=== PATIENT | male | born 1945 | race Caucasian/White ===

== ENCOUNTER 2019-11-26 10:01 | Outpatient (CLI) | payer MEDICARE, OTHER ==
[2019-11-26 11:08] LABS: Estimated GFR-MDRD - POC Greater than 90
--- NOTE | 2019-11-26 11:31 | CT ---
CT ABDOMEN AND PELVIS HISTORY: Chronic diarrhea. Unintentional weight loss. Periumbilical pain. COMPARISON: None.. Procedure: Multiple contiguous axial images were obtained and a CT of the abdomen and pelvis with IV contrast. C oronal reformats were performed. FINDINGS: Lower Chest: Focal opacities in the left lower lobe may represent scar or atelectasis. Infiltrate can not be entirely excluded. Chronic changes in the right lung bases are suspected. Vessels: Atherosclerosis of a nonaneurysmal aorta. Heart: Normal heart size. There are coronary artery calcifications. Abdomen: Portal vein:Patent Gallbladder: No calcified gallstones. Normal caliber wall. Liver: within normal limits. Pancreas: Pancreatic atrophy. No obvious pancreatic masses. Spleen: within normal limits. Adrenals: within normal limits. Kidneys: Symmetric enhancement. There are multiple exophytic hypodense lesions emanating from the lef t and right kidney, compatible with cysts. There are additional isodense lesions in the upper pole of the right kidney and midpole to lower pole of the right kidney which are incompletely evaluated. R ight upper pole lesion measures 0.8 x 1.1 cm. Right lower pole lesion measures 1.6 x 1.5 cm. Additionally, there appear to be bilateral parapelvic cysts. Bilaterally no obstructive uropathy. Peritoneum: No ascites or free air, no fluid collection. A trace amount of fluid in both paracolic gu tters. Bowel: Gastric mucosa, duodenum and multiple contrast-filled small bowel loops are grossly unremarkab le. Ileocecal junction is unremarkable. Normal caliber appendix. There is scattered fecal material and contrast throughout the colon. Obvious mucosal-based lesion is not appreciated. Occasional divert iculum, without evidence of diverticulitis. Mesentery and Retroperitoneum: No enlarged mesenteric or retroperitoneal lymph nodes. Abdominal Wall: within normal limits. Pelvis: Reproductive Organs: Enlarged prostate gland with some mass effect upon the of floor the urinary blad sumeet. Pelvis: No mass, lymphadenopathy, free air or free fluid. Bladder: There is circumferential bladder wall thickening. There appears to be a soft tissue nodule a long the right aspect of the urinary bladder measuring 0.9 x 1.1 cm. A bladder neoplasm cannot be excluded. Bones: There are no lytic or blastic lesions. Multilevel vacuum disc phenomenon of the lumbar spine a s noted. IMPRESSION: 1. No obvious evidence of bowel obstruction. There is limited evaluation of the right hemicolon. Give n patient's history, colonoscopy is recommended. 2. Possible neoplasm or mass in the right aspect of the urinary bladder. Cystoscopy is recommended. 3. Indeterminate lesions in the right kidney. Dedicated abdomen MRI is recommended to better interrog ate the renal cortical lesions. CODE T Transcribed Date/Time: 11/26/2019 11:38 AM
== END 2019-11-26 10:02 | disposition home or self-care (01) ==
LOC: BICCT 10:01
PROVIDERS: ATTEND Internal Medicine
DX: K52.9 Noninfective gastroenteritis and colitis, unspecified (principal); R63.4 Abnormal weight loss; R10.33 Periumbilical pain; N28.89 Other specified disorders of kidney and ureter
CPT/HCPCS: 74177; 82565

== ENCOUNTER 2020-01-11 10:48 | Outpatient (CLI) | payer OTHER ==
--- NOTE | 2020-01-11 13:02 | CT ---
CT Abdomen Pelvis W WO con: 01/11/2020 12:00 AM CLINICAL HISTORY: Parapelvic renal cyst. Bladder mass.. TECHNIQUE: Multiple contiguous axial images were obtained and a CT of the abdomen and pelvis without and with IV contrast. Postcontrast images were obtained in the nephrographic and excretory phases. Sagittal and coronal reformats were performed. COMPARISON: None. FINDINGS: Kidneys and Urinary Tract: Right kidney and ureter: No calculi. No hydronephrosis or hydroureter. Multiple cysts scattered throu ghout the kidney. Some of the cysts are hyperdense. No suspicious renal masses. No urothelial lesions: no filling defect, dilation, stricture or wall thickening. Left kidney and ureter: No calculi. No hydronephrosis or hydroureter. Multiple cysts scattered throug hout the kidney. Some of the cysts are hyperdense. No suspicious renal masses. No urothelial lesions: no filling defect, dilation, stricture or wall thickening. Urinary bladder: Moderate hypertrophy of the prostate. Normal, no calculi, mass or other lesions. Remainder of Abdomen and Pelvis: Liver: Normal. Gallbladder and biliary system: Normal. No CT evident gallstones. No biliary ductal dilatation. Spleen: Normal. Pancreas: Normal. Adrenal glands: Normal. GI tract: Normal. Abdominal aorta and its major branches: Atherosclerotic calcifications. No aneurysm. Peritoneum/retroperitoneum: Normal. No ascites. No adenopathy. Pelvic structures: Normal. No pelvic lymphadenopathy. Body wall and musculoskeletal: Degenerative changes in the spine. Visualized lower thorax: Normal. No pulmonary parenchymal mass or pleural effusion. IMPRESSION: Bilateral renal cysts
== END 2020-01-11 10:49 | disposition home or self-care (01) ==
LOC: SCSCT 10:48
PROVIDERS: ATTEND Urology
DX: N28.1 Cyst of kidney, acquired (principal); N32.89 Other specified disorders of bladder; N28.89 Other specified disorders of kidney and ureter
CPT/HCPCS: 74178

== ENCOUNTER 2020-01-13 10:59 | Outpatient (CLI) | payer OTHER ==
[2020-01-13 14:01] LABS: Bacteria/HPF None Seen HPF (None Seen); Bilirubin Negative (Negative); Blood, Urine Negative (Negative); Clarity Clear (Clear); Glucose, Urine (Dipstick) Normal (Negative); Leukocyte Negative Leu/uL (Negative); Nitrite Negative (Negative); Protein, Urine (Dipstick) Negative (Neg-Trace); RBC/HPF 0-3 HPF (0-3); Squamous Epithelial None Seen HPF (0-3); Urobilinogen Normal mg/dL (Less than 2); WBC/HPF 0-3 HPF (0-3)
== END 2020-01-13 11:00 | disposition home or self-care (01) ==
LOC: LABBT 10:59
PROVIDERS: ATTEND Urology
DX: Z01.818 Encounter for other preprocedural examination (principal); Z12.5 Encounter for screening for malignant neoplasm of prostate; N32.89 Other specified disorders of bladder; N40.1 Benign prostatic hyperplasia with lower urinary tract symptoms; R39.14 Feeling of incomplete bladder emptying; N28.1 Cyst of kidney, acquired; K52.9 Noninfective gastroenteritis and colitis, unspecified; I50.32 Chronic diastolic (congestive) heart failure; N28.89 Other specified disorders of kidney and ureter; Z72.0 Tobacco use; Z95.0 Presence of cardiac pacemaker
CPT/HCPCS: 81001; 87086; 93005; 93010

== ENCOUNTER 2020-01-17 07:31 | Day surgery (SDC) | payer OTHER ==
[2020-01-13 11:25] VITALS: BMI 24.4
[2020-01-13 13:31] LABS: Hemoglobin 11.3 g/dL (14.0-18.0); Mean Corpuscular HGB CONC 31.9 g/dL (32.0-36.0); Mean Corpuscular Hemoglobin 26.5 pg (27.0-31.0); Mean Platelet Volume 7.9 fL (7.4-10.4); Platelet Count 270 thou/uL (130-400); RBC Distribution Width 18.7 % (11.5-14.5); Red Blood Cell (RBC) Count 4.26 mill/uL (4.70-6.10); White Blood Cell (WBC) Count 6.4 thou/uL (4.8-10.8)
[2020-01-13 13:39] LABS: INR-International Normal Ratio 0.9; Prothrombin Time 12.4 SEC (12.0-14.7)
[2020-01-13 13:40] LABS: PTT 29.7 SEC (22.9-36.1)
[2020-01-13 13:57] LABS: Anion Gap 13 mmol/L (10-20); BUN (Urea Nitrogen) 9 mg/dL (8.4-25.7); Calc. Creatinine Clearance 0 mL/min (70-130); Calcium 9.3 mg/dL (7.8-10.44); Carbon Dioxide 27 mmol/L (23-31); Chloride 105 mmol/L (98-107); Estimated GFR-MDRD Greater than 90; Glucose 111 mg/dL (83-110); Potassium 4.2 mmol/L (3.5-5.1); Sodium 141 mmol/L (136-145)
[2020-01-17] MEDS ORDERED: Levofloxacin 500 mg/D5W 100 ml Premix Bag ONE (07:53)
[2020-01-17] MEDS ORDERED: Lidocaine 1% PF 5 ML VIAL ONE (09:20)
[2020-01-17] MEDS ORDERED: PROPOFOL 200 MG/20 ML VIAL ONE (09:20)
[2020-01-17] MEDS ORDERED: Rocuronium Bromide 10 MG/ML (10ML VIAL) ONE (09:20)
[2020-01-17] MEDS ORDERED: Ondansetron PF 4 MG/2 ML Vial ONE (09:20)
[2020-01-17] MEDS ORDERED: EPHEDRINE 25 MG/5 ML SYRINGE ONE (09:20)
[2020-01-17] MEDS ORDERED: SUGAMMADEX SODIUM 200 MG/2 ML VIAL ONE ×2 (10:10→11:22)
[2020-01-17] MEDS ORDERED: Fentanyl 100 MCG/2 ML VIAL ONE (10:10)
[2020-01-17] MEDS ORDERED: Oxybutynin 5 MG TAB ONE (11:45)
[2020-01-17] MEDS ORDERED: Phenazopyridine HCl 97.5 MG TABLET ONE (11:46)
--- NOTE | 2020-01-17 16:31 | OP ---
DATE OF PROCEDURE: 01/17/2020 GI DOCTOR: Stas Greco MD PREOPERATIVE DIAGNOSES: 1. A 74-year-old male with history of significant tobacco abuse since age 14. 2. Incidental right lateral wall bladder tumor. 3. Severe benign prostatic hypertrophy with incomplete emptying. Post-void residual around 230. POSTOPERATIVE DIAGNOSES: 1. A 74-year-old male with history of significant tobacco abuse since age 14. 2. Incidental right lateral wall bladder tumor. 3. Severe benign prostatic hypertrophy with incomplete emptying. Post-void residual around 230. PROCEDURES PERFORMED: Cystoscopy, transurethral resection of right lateral bladder tumor, fulguration of bladder tumor, a 20-Kittitian 3-way Garcia catheter placement to gravity leg bag. ANESTHESIA: General. COMPLICATIONS: None apparent. DISPOSITION: To recovery room in stable condition. SPECIMEN: TUR of bladder tumor. INDICATIONS FOR PROCEDURE AND HISTORY: Mr. Perez is a 74-year-old male with history of significant tobacco abuse since age 14, who presented for evaluation of incidental bladder tumor seen on a CT scan obtained by GI. The patient had workup for weight loss, over the last few months with decreased appetite and diarrhea. Colonoscopy was grossly unremarkable. CT demonstrated a small right lateral bladder tumor. He has no significant history of gross hematuria. Remote history of UTI, saw urologist in the past, however, this was years ago. Per my review, CT prostate volume is significantly enlarged, and he was advised to continue his BPH medications, Proscar, and increase his Flomax to b.i.d. Local cystoscopy confirmed right lateral bladder tumor about 1 to 1.5 cm with microcalcification appeared sessile, superficial. However, there was adjacent superficial bladder tumor papillary surrounding the lesion with surface area about 2 cm from the pedunculated lesion. There was significant trabeculation consistent with chronic outlet obstruction. He presents today for TURBT. Risks, complications, and indications were reviewed with the patient and in detail including, but not limited to: Bleeding, pain, infection, clot retention, bladder injury, injury to adjacent organs such as ureteral orifices. All questions were answered to his satisfaction, and they desired to proceed. Possible secondary procedure was reviewed if he warrants a staging TUR. DESCRIPTION OF PROCEDURE: After an informed consent was signed, the patient was taken to the operating room and placed in a dorsal lithotomy position with the genital area prepped and draped in the usual surgical sterile fashion. A 21-Kittitian cystoscope was utilized for cystoscopy, which demonstrated normal anterior urethra. Prostatic urethra was staged demonstrating severe bilobar hyperplasia of the prostate with no evidence of intravesical median lobe. Bladder was entered, which demonstrated the UOs about 3 mm proximal to the bladder neck. There was diffuse trabeculation of the bladder consistent with chronic outlet obstruction. Of note, he has significant telangiectasia of the bladder mucosa with significant vascularity surrounding the right lateral bladder tumor consistent with hypervascularity. He also had some hypervascularity of the trigone as well. At this time, we transitioned to a 70-degree lens, which demonstrated no other lesions of concern. A 26-Kittitian continuous resectoscope with a visual obturator was passed to the level of the bladder, and using a Gyrus bipolar, we resected the right lateral bladder tumor. The tumor itself was about 1 to 1.5 cm, pedunculated, and we resected the tumor. On exam under anesthesia with bladder distended, there was surface area surrounding the bladder tumor, 2 to 3 cm circumferential involving papillary changes consistent with TCC. We resected the pedunculated bladder lesion first. He did have an obturator reflex despite the fact that he was under general anesthesia. Of note, there was no evidence of bladder injury; however, the bladder wall appeared thin, moreover, significant trabeculated bladder lining. With the resection of the bladder tumor and flush down, I was able to see the muscular fibers. As he had an obturator reflex, I did not want to aggressively resect this region given the attenuated bladder mucosa on the lateral wall location as he is high risk for bladder perforation. After the pedunculated lesion was removed, we fulgurated the surrounding papillary area that was involving the bladder tumor with Gyrus fulgurating entirety. The entire surface area was about 4 cm. I did take time fulgurating the mucosa hypervascularity surrounding the lesion and the trigone as well. At the end of the procedure, we evacuated all bladder tumor specimen. Good hemostasis was obtained. No active bleeding was appreciated. A 20-Kittitian 3-way Garcia catheter was placed with CBI port plugged. Catheter was attached to leg bag demonstrating clear output. As he has tendency for incomplete emptying, moreover, attenuated bladder mucosa, we will leave the catheter in until next week. He will see me next week for catheter removal, possible voiding trial versus catheter removal. He is discharged with ciprofloxacin for 10 days, Azo p.r.n., Colace p.r.n., tramadol 50 mg. The patient is advised to continue his Flomax b.i.d., and Proscar. At a later date, he will need to be worked up for BPH intervention with a transrectal ultrasound volume study. Job ID: [id number]
== END 2020-01-17 13:30 | disposition home or self-care (01) ==
LOC: SDC 07:31
PROVIDERS: ATTEND Urology
PROC: 0TBB8ZZ Excision of Bladder, Via Natural or Artificial Opening Endoscopic (ICD-10-PCS; principal; 2020-01-17)
DX: D49.4 Neoplasm of unspecified behavior of bladder (principal); N40.1 Benign prostatic hyperplasia with lower urinary tract symptoms; R33.8 Other retention of urine; Z79.52 Long term (current) use of systemic steroids; Z79.899 Other long term (current) drug therapy
CPT/HCPCS: 36415; 80048; 85027; 85610; 85730; 86850; 86900; 86901; 88305; J1956; J2001; J2405; J2704; J3010

== ENCOUNTER 2020-05-15 07:13 | Outpatient (CLI) | payer OTHER ==
[2020-05-15 14:30] LABS: PTT 29.7 sec (22.9-36.1)
[2020-05-15 14:32] LABS: Hemoglobin 9.8 g/dL (14.0-18.0); Mean Corpuscular HGB CONC 30.1 g/dL (32.0-36.0); Mean Corpuscular Volume 72.8 fL (78.0-98.0); Mean Platelet Volume 7.7 fL (7.4-10.4); Platelet Count 329 thou/uL (130-400); RBC Distribution Width 17.1 % (11.5-14.5); Red Blood Cell (RBC) Count 4.48 mill/uL (4.70-6.10); White Blood Cell (WBC) Count 8.6 thou/uL (4.8-10.8)
[2020-05-15 14:35] LABS: INR-International Normal Ratio 0.9; Prothrombin Time 12.6 sec (12.0-14.7)
[2020-05-15 14:41] LABS: Anion Gap 15 mmol/L (10-20); BUN (Urea Nitrogen) 6 mg/dL (8.4-25.7); Calc. Creatinine Clearance 0 mL/min (70-130); Calcium 8.7 mg/dL (7.8-10.44); Carbon Dioxide 23 mmol/L (23-31); Chloride 104 mmol/L (98-107); Estimated GFR-MDRD Greater than 90; Glucose 107 mg/dL (83-110); Potassium 4.5 mmol/L (3.5-5.1); Sodium 137 mmol/L (136-145)
[2020-05-16 13:11] LABS: SARS-CoV-2 MS2 Positive; SARS-CoV-2 N Gene Negative; SARS-CoV-2 S Gene Negative; SARS-CoV-2 orf1ab Negative
== END 2020-05-15 07:14 | disposition home or self-care (01) ==
LOC: LABBT 07:13
PROVIDERS: ATTEND Urology
DX: Z01.812 Encounter for preprocedural laboratory examination (principal); Z11.59 Encounter for screening for other viral diseases; Z12.5 Encounter for screening for malignant neoplasm of prostate; Z51.81 Encounter for therapeutic drug level monitoring; C67.9 Malignant neoplasm of bladder, unspecified; K52.9 Noninfective gastroenteritis and colitis, unspecified; R39.14 Feeling of incomplete bladder emptying; N32.89 Other specified disorders of bladder; N28.1 Cyst of kidney, acquired; N40.1 Benign prostatic hyperplasia with lower urinary tract symptoms; I50.32 Chronic diastolic (congestive) heart failure; M06.9 Rheumatoid arthritis, unspecified; Z95.0 Presence of cardiac pacemaker; Z79.899 Other long term (current) drug therapy; Z72.0 Tobacco use
CPT/HCPCS: 80048; 85027; 85610; 85730; 87635; U0003

== ENCOUNTER 2020-05-17 06:30 | Day surgery (SDC) | payer OTHER ==
[2020-05-12 16:10] VITALS: BMI 23.7
[2020-05-17] MEDS ORDERED: Levofloxacin 500 mg/D5W 100 ml Premix Bag ONE (06:52)
[2020-05-17] MEDS ORDERED: Phenazopyridine HCl 97.5 MG TABLET ONE (09:32)
--- NOTE | 2020-05-17 10:11 | OP ---
DATE OF PROCEDURE: 05/17/2020 PREOPERATIVE DIAGNOSES: 1. A 74-year-old male with history of benign prostatic hypertrophy, incomplete emptying. 2. History of transitional cell carcinoma in remission, status post transurethral resection of bladder tumor. POSTOPERATIVE DIAGNOSES: 1. A 74-year-old male with history of benign prostatic hypertrophy, incomplete emptying. 2. History of transitional cell carcinoma in remission, status post transurethral resection of bladder tumor. PROCEDURES PERFORMED: Cystoscopy, UroLift implant x6. ANESTHESIA: TIVA. COMPLICATIONS: None apparent. DISPOSITION: To recovery room in stable condition. ESTIMATED BLOOD LOSS: Minimal. INDICATIONS FOR PROCEDURE AND HISTORY: Mr. Perez is a 74-year-old male, known to me with history of bladder cancer, which I treated, status post TURBT and currently in remission. He continues to be surveyed every 3 months. The patient also with a history of BPH, incomplete emptying, requiring double void. His IPSS score is 21. He presents today for UroLift. We did discuss options of continued medical therapy, TURP is an alternative option. With all risks and benefits outlined, he desired less invasive approach and presents today for UroLift. Risks and complications of the procedure reviewed with him in detail including, but not limited to, bleeding, pain, infection, injury to adjacent organs, chronic pain, migration of implants resulting in urolithiasis warranting removal, possible secondary procedure was reviewed with him in detail. All questions answered to his satisfaction and desired to proceed. DESCRIPTION OF PROCEDURE: After an informed consent was signed, the patient was taken to the operating room, placed in a dorsal lithotomy position with the genital area prepped and draped in the usual surgical sterile fashion. A 21-[place] cystoscope was utilized for cystoscopy, which demonstrated bilobar hyperplasia with severe obstruction. The bladder was entered, which demonstrated diffuse trabeculation consistent with chronic outlet obstruction. UOs were identified about 2 to 3 mm proximal to the bladder neck. He had a very small right lateral bladder diverticulum as consistent with prior cystoscopy and demonstrated no evidence of bladder tumor recurrence. At this time, we transitioned to the UroLift cystoscope device with use of visual obturator. We implanted the left lateral lobe first, staying 1.5 to 2 cm proximal to the bladder neck. Total of 3 on each side, resulting in 6 implants. At the end of the procedure, he had a good anterior channel. Although, there were apical lobes residual present, these were nonobstructing, anteriorly he has a great open channel. He did require stacking maneuver at the proximal portion, which opened up his bladder neck widely. The UroLift urethral tab were not seen at the level of bladder neck. He had a good open channel with minimal bleeding. He tolerated the procedure well and transported to the recovery room in stable condition, will undergo voiding trial. We will return to clinic tomorrow for peak flow PVR checked. The patient discharged with ciprofloxacin for 5 days, Niru p.r.n. Job ID: [id number] [facility]
[2020-05-17] MEDS ORDERED: PROPOFOL 200 MG/20 ML VIAL ONE (11:25)
== END 2020-05-17 10:37 | disposition home or self-care (01) ==
LOC: SDC 06:30
PROVIDERS: ATTEND Urology
PROC: 0T7D8DZ Dilation of Urethra with Intraluminal Device, Via Natural or Artificial Opening Endoscopic (ICD-10-PCS; principal; 2020-05-17)
DX: N40.1 Benign prostatic hyperplasia with lower urinary tract symptoms (principal); R39.14 Feeling of incomplete bladder emptying; I10 Essential (primary) hypertension; I25.10 Atherosclerotic heart disease of native coronary artery without angina pectoris; F17.210 Nicotine dependence, cigarettes, uncomplicated; M06.9 Rheumatoid arthritis, unspecified; Z79.899 Other long term (current) drug therapy
CPT/HCPCS: C1889; J1956; J2704

== ENCOUNTER 2020-12-26 09:24 | Outpatient (CLI) | payer OTHER ==
[2020-12-26 09:59] LABS: Estimated GFR-MDRD - POC Greater than 90
[2020-12-26] MEDS ORDERED: Iopamidol-370 76% 500 ML 1 ML ONE (10:09)
--- NOTE | 2020-12-26 12:04 | CT ---
CT ABDOMEN AND PELVIS PERFORMED WITH AND WITHOUT CONTRAST ENHANCEMENT: HISTORY: Bladder cancer. History of tumor being removed. This is followup. COMPARISON: A 01/11/2020 exam. FINDINGS: The lung bases show chronic-appearing change. More prominent interstitial change in the left base wh ich is stable. The liver, spleen, and pancreas regions appear unremarkable. gallbladder is also unremarkable. Right and left adrenal glands are normal. Right and left kidneys are normal in size. There are hypo densities involving both kidneys that are compatible with cysts. There are also a hyperdense lesions which are seen involving both kidneys, one in the posterior cortex of the right kidney and two invol ving the left kidney. These are stable in appearance and most compatible with some hemorrhagic cysts . There is what appears to be a tiny punctate calcification seen in the lower pole of the left kidne y axial image 41. There is no significant periaortic or mesenteric adenopathy. CT OF PELVIS PERFORMED WITH AND WITHOUT CONTRAST ENHANCEMENT: I do not appreciate any significant pelvic lymphadenopathy. On the previous examination, there is a small eccentric right lateral wall bladder lesion which I no longer seen on today's study. There is some minimal bladder wall thickening considering the degree of distention. The prostate is prominent . Prostate seeds are noted. Review of osseous structures shows arthritic changes of the spine. IMPRESSION: 1. Multiple renal cysts, some of which are hyperdense cysts. These are all stable. 2. Some mild bladder wall thickening is present. The small eccentric lesion along the right side o f the bladder wall noted on the previous exam is no longer present. 3. Tiny punctate nonobstructing lower pole left renal calculus. 4. Chronic lung change. POS: [facility]
== END 2020-12-26 09:25 | disposition home or self-care (01) ==
LOC: BICCT 09:24
PROVIDERS: ATTEND Urology
DX: C67.9 Malignant neoplasm of bladder, unspecified (principal); N28.1 Cyst of kidney, acquired; R89.6 Abnormal cytological findings in specimens from other organs, systems and tissues; N20.0 Calculus of kidney; N32.89 Other specified disorders of bladder; J98.4 Other disorders of lung
CPT/HCPCS: 74178; 82565; Q9967

== ENCOUNTER 2023-08-06 13:12 | Outpatient (CLI) | payer OTHER | END 2023-08-06 13:13 | disposition home or self-care (01) | LOC: ULT 13:12 | PROVIDERS: ATTEND Urology | DX: N28.1 Cyst of kidney, acquired (principal); N20.0 Calculus of kidney; N40.0 Benign prostatic hyperplasia without lower urinary tract symptoms | CPT/HCPCS: 76770 ==

== ENCOUNTER 2023-10-28 10:21 | Outpatient (CLI) | payer OTHER ==
[2023-10-28 12:02] LABS: Hematocrit 42.6 % (38.8-50.0); Mean Corpuscular HGB CONC 32.9 g/dL (32.0-36.0); Mean Corpuscular Hemoglobin 29.7 pg (27.0-33.0); Mean Corpuscular Volume 90.4 fl (81.2-95.1); Platelet Count 292 10x3/uL (150-450); RBC Distribution Width 13.6 % (11.5-14.5); Red Blood Cell (RBC) Count 4.71 10x6/uL (4.32-5.72); White Blood Cell (WBC) Count 7.9 10x3/uL (3.5-10.5)
[2023-10-28 12:06] LABS: Bilirubin Neg (Negative); Blood, Urine Negative (Negative); Glucose, Urine (Dipstick) Normal (Negative); Ketone, Urine Negative (Negative); Leukocyte Negative (Negative); Nitrite Negative (Negative); Protein, Urine (Dipstick) 15 mg/dl (Neg-Trace); Specific Gravity, Urine 1.005 (1.005-1.030); Urobilinogen Normal mg/dL (Less than 2); pH, Urine 6.5 (5.0-9.0)
[2023-10-28 12:07] LABS: Clarity Clear (Clear)
[2023-10-28 12:09] LABS: Anion Gap 14 mmol/L (10-20); BUN (Urea Nitrogen) 14 mg/dL (8.4-25.7); Calc. Creatinine Clearance 0 mL/min (70-130); Carbon Dioxide 25 mmol/L (23-31); Chloride 99 mmol/L (98-107); Estimated GFR 88; Glucose 93 mg/dL (83-110); Potassium 4.4 mmol/L (3.5-5.1); Sodium 134 mmol/L (136-145)
[2023-10-28 12:15] LABS: Bacteria/HPF None Seen HPF (None Seen); RBC/HPF None Seen HPF (0-3); Squamous Epithelial None Seen HPF (0-3); WBC/HPF None Seen HPF (0-3)
[2023-10-28 12:17] LABS: PTT 33.5 sec (22.0-33.0); Prothrombin Time 11.1 sec (9.5-12.1)
== END 2023-10-28 10:22 | disposition home or self-care (01) ==
LOC: LABBT 10:21
PROVIDERS: ATTEND Urology
DX: Z01.818 Encounter for other preprocedural examination (principal); Z12.5 Encounter for screening for malignant neoplasm of prostate; C67.9 Malignant neoplasm of bladder, unspecified; N28.1 Cyst of kidney, acquired; N40.1 Benign prostatic hyperplasia with lower urinary tract symptoms; R39.14 Feeling of incomplete bladder emptying; I50.32 Chronic diastolic (congestive) heart failure; M06.9 Rheumatoid arthritis, unspecified; N52.9 Male erectile dysfunction, unspecified; N20.0 Calculus of kidney; K52.9 Noninfective gastroenteritis and colitis, unspecified; R89.6 Abnormal cytological findings in specimens from other organs, systems and tissues; R82.71 Bacteriuria; Z95.0 Presence of cardiac pacemaker; Z72.0 Tobacco use
CPT/HCPCS: 80048; 81001; 85027; 85610; 85730; 87086; 93005; 93010

== ENCOUNTER 2023-11-08 11:41 | Inpatient (IN) | payer OTHER ==
[2023-11-08 12:00] LABS: #Monocytes 0.8 thou/uL (0.11-0.59); #Neutrophils 8.9 thou/uL (1.40-6.50); %Basophils 0.2 % (0.0-1.0); %Eosinophils 0.1 % (0.0-10.0); %Lymphocytes 15.4 % (21.0-51.0); %Monocytes 6.9 % (0.0-10.0); %Neutrophils 76.8 % (42.0-75.0); Hematocrit 47.6 % (42.0-52.0); Hemoglobin 15.5 g/dL (14.0-18.0); Mean Corpuscular HGB CONC 32.6 g/dL (32.0-36.0); Mean Corpuscular Hemoglobin 29.5 pg (27.0-31.0); Mean Corpuscular Volume 90.7 fl (78.0-98.0); Mean Platelet Volume 8.6 fL (7.4-10.4); Platelet Count 374 10x3/uL (130-400); RBC Distribution Width 13.2 % (11.5-14.5); Red Blood Cell (RBC) Count 5.25 mill/uL (4.70-6.10); White Blood Cell (WBC) Count 11.6 10x3/uL (4.8-10.8)
[2023-11-08 12:19] LABS: ALT (SGPT) 25 U/L (8-55); AST (SGOT) 49 U/L (5-34); Albumin 3.1 g/dL (3.4-4.8); Alkaline Phosphatase 143 U/L (40-110); Anion Gap 25 mmol/L (10-20); BUN (Urea Nitrogen) 17 mg/dL (8.4-25.7); Bilirubin, Total 1.2 mg/dL (0.2-1.2); CK (CPK) 192 U/L (30-200); Calc. Creatinine Clearance 0 mL/min (70-130); Calcium 9.1 mg/dL (7.8-10.44); Carbon Dioxide 12 mmol/L (23-31); Chloride 100 mmol/L (98-107); Estimated GFR 57; Globulin 3.6 g/dL (2.4-3.5); Glucose 187 mg/dL (83-110); Potassium 3.9 mmol/L (3.5-5.1); Protein, Total 6.7 g/dL (5.8-8.1); Sodium 133 mmol/L (136-145)
[2023-11-08 12:21] LABS: Troponin I 0.059 ng/mL (< 0.028)
[2023-11-08] MEDS ORDERED: NOREPINEPHRINE 8 MG/250 ML-D5W 250 ML ONE (12:21)
[2023-11-08] MEDS ORDERED: Digoxin 0.5 MG/2 ML AMP ONE (12:37)
[2023-11-08 12:46] LABS: Prothrombin Time 18.4 sec (12.0-14.7)
[2023-11-08 12:47] LABS: PTT 38.7 sec (22.9-36.1)
[2023-11-08 12:48] LABS: INR-International Normal Ratio 1.5
[2023-11-08] MEDS ORDERED: Cefepime 2 GM VIAL ONE (13:18)
[2023-11-08] MEDS ORDERED: Sodium Chloride 0.9% 100 ML ONE (13:19)
[2023-11-08] MEDS ORDERED: Vancomycin (BATCH) 1.25 GM in Premix 1 BAG IVPB SCH (13:45)
[2023-11-08] MEDS ORDERED: Ondansetron PF 4 MG/2 ML Vial ONE (13:57)
[2023-11-08] MEDS ORDERED: Iopamidol-370 76% 500 ML MDV (1 ML CHARGE) ONE (14:29)
[2023-11-08 14:33] LABS: Bacteria/HPF None Seen HPF (None Seen); Bilirubin Negative (Negative); Blood, Urine Negative (Negative); CAUTI Indications for Culture Dysuria,urgency,freq; Clarity Clear (Clear); Glucose, Urine (Dipstick) Normal (Negative); Ketone, Urine Negative (Negative); Leukocyte Negative Leu/uL (Negative); Nitrite Negative (Negative); Protein, Urine (Dipstick) 10 mg/dL (Neg-Trace); RBC/HPF 0-3 HPF (0-3); Specific Gravity, Urine 1.014 (1.002-1.036); Squamous Epithelial 0-3 HPF (0-3); Urobilinogen Normal mg/dL (Less than 2); WBC/HPF 0-3 HPF (0-3); pH, Urine 5.5 (5.0-9.0)
[2023-11-08 14:35] LABS: Urine Culture Reflex No No
[2023-11-08 16:54] LABS: Troponin I 0.288 ng/mL (< 0.028)
[2023-11-08] MEDS ORDERED: Sodium Bicarbonate 75 MEQ in Dextrose 5% in Water 500 ML IV SCH (17:00)
[2023-11-08] MEDS: Ondansetron PF 4 MG/2 ML Vial IVP PRN (17:26)
[2023-11-08] MEDS: Sodium Bicarbonate 150 MEQ in Dextrose 5% in Water 1,000 ML IV SCH (18:27)
[2023-11-08 19:32] LABS: Lactic Acid 3.1 mmol/L (0.5-2.2)
[2023-11-08 19:36] LABS: Troponin I 0.479 ng/mL (< 0.028)
[2023-11-08] MEDS ORDERED: Labetalol HCl 100 MG/20 ML VIAL SLOW IVP PRN (20:38)
[2023-11-08] MEDS ORDERED: hydrALAZINE 20 MG/ML VIAL SLOW IVP PRN (20:38)
[2023-11-08] MEDS ORDERED: Pantoprazole 40 MG VIAL IVP SCH (20:45)
[2023-11-08] MEDS ORDERED: Dextrose 5% in Water 1,000 ML IV PRN (20:45)
[2023-11-08] MEDS ORDERED: Glucagon 1 MG/ML KIT IM PRN (20:45)
[2023-11-08] MEDS ORDERED: Electrolyte Replacement Protocol 1 EACH FS SCH (20:45)
[2023-11-08] MEDS ORDERED: Digoxin 0.5 MG/2 ML AMP SLOW IVP SCH (20:45)
[2023-11-08] MEDS ORDERED: Dextrose 50% Abboject 50 ML SYRINGE SLOW IVP PRN (20:45)
[2023-11-08] MEDS ORDERED: methylPREDNISolone Sod Succ 40 MG VIAL IVP SCH (21:00)
[2023-11-08] MEDS ORDERED: Atorvastatin Calcium 20 MG TAB PO SCH (21:00)
[2023-11-08] MEDS ORDERED: Promethazine HCl 12.5 MG in Sodium Chloride 0.9% 50 ML IVPB SCH (21:15)
[2023-11-08] MEDS ORDERED: diphenhydrAMINE 50 MG/ML VIAL IVP SCH (21:15)
[2023-11-08 21:40] LABS: Lactic Acid 3.6 mmol/L (0.5-2.2)
[2023-11-08] MEDS: Artificial Tear Sol 15 ML BOT EA EYE SCH (21:42)
[2023-11-08] MEDS: Ferrous Sulfate 325 MG TAB PO SCH (21:42)
[2023-11-08] MEDS: Apixaban 5 MG TAB PO SCH (21:43)
[2023-11-08 21:48] LABS: SARS-CoV-2 NAA Rapid Test Not Detected (NotDetected)
[2023-11-08 21:50] LABS: Anion Gap 18 mmol/L (10-20); BUN (Urea Nitrogen) 28 mg/dL (8.4-25.7); Calc. Creatinine Clearance 35 mL/min (70-130); Calcium 7.6 mg/dL (7.8-10.44); Carbon Dioxide 17 mmol/L (23-31); Chloride 100 mmol/L (98-107); Estimated GFR 38; Glucose 282 mg/dL (83-110); Potassium 4.3 mmol/L (3.5-5.1); Sodium 131 mmol/L (136-145)
[2023-11-08] MEDS: Atorvastatin Calcium 40 MG TAB PO SCH (21:50)
[2023-11-08 22:05] LABS: Phosphorus 4.6 mg/dL (2.3-4.7)
[2023-11-08] MEDS ORDERED: metroNIDAZOLE 500 MG in Premix 1 BAG IVPB SCH (23:00)
[2023-11-08 23:24] LABS: Critical Call Chem Troponin I RESULT DECREASING; Troponin I 0.341 ng/mL (< 0.028)
[2023-11-08] MEDS: Amiodarone 450 MG in Dextrose 5% in Water 250 ML IVPB SCH (23:31)
[2023-11-08] MEDS: Acetaminophen 325 MG TAB PO PRN (23:38)
[2023-11-09] MEDS ORDERED: fentaNYL 50 mcg/mL 1 mL Vial SLOW IVP SCH (00:15)
[2023-11-09] MEDS ORDERED: Magnesium 2 GM/50 ML(in water) 2 GM in Premix 1 BAG IVPB SCH (02:15)
[2023-11-09] MEDS: Cefepime 1 GM in Sodium Chloride 0.9% 100 ML IVPB SCH ×2 (03:05→14:32)
[2023-11-09] MEDS: Vancomycin HCl 750 MG in Sodium Chloride 0.9% 250 ML 250 ML IVPB SCH ×2 (03:05→15:57)
[2023-11-09] MEDS: Sodium Bicarbonate 150 MEQ in Dextrose 5% in Water 1,000 ML IV SCH (03:16)
[2023-11-09 03:32] LABS: #Eosinphils 0.2 thou/uL (0.0-0.7); #Neutrophils 10.1 thou/uL (1.40-6.50); %Basophils 0.3 % (0.0-1.0); %Eosinophils 1.4 % (0.0-10.0); %Lymphocytes 5.2 % (21.0-51.0); %Monocytes 8.4 % (0.0-10.0); %Neutrophils 84.4 % (42.0-75.0); Hematocrit 43.3 % (42.0-52.0); Hemoglobin 14.5 g/dL (14.0-18.0); Mean Corpuscular HGB CONC 33.5 g/dL (32.0-36.0); Mean Corpuscular Hemoglobin 29.3 pg (27.0-31.0); Mean Platelet Volume 9.2 fL (7.4-10.4); Platelet Count 279 10x3/uL (130-400); RBC Distribution Width 13.4 % (11.5-14.5); Red Blood Cell (RBC) Count 4.95 mill/uL (4.70-6.10)
[2023-11-09 03:35] LABS: Mean Corpuscular Volume 87.5 fl (78.0-98.0)
[2023-11-09 03:59] LABS: Anion Gap 16 mmol/L (10-20); BUN (Urea Nitrogen) 29 mg/dL (8.4-25.7); Calc. Creatinine Clearance 41 mL/min (70-130); Calcium 7.4 mg/dL (7.8-10.44); Carbon Dioxide 20 mmol/L (23-31); Cardiac Risk 2.3 (Less than 4.5); Chloride 98 mmol/L (98-107); Cholesterol 77 mg/dl (< 200 Desired); Estimated GFR 46; Glucose 207 mg/dL (83-110); HDL Cholesterol 34 mg/dL (>60 Neg Risk); LDL Cholesterol, Calculated 34 mg/dL; Lactic Acid 2.8 mmol/L (0.5-2.2); Potassium 3.7 mmol/L (3.5-5.1); Sodium 130 mmol/L (136-145); Triglycerides 46 mg/dL (Less than 150)
[2023-11-09] MEDS: metroNIDAZOLE 500 MG in Premix 1 BAG IVPB SCH ×3 (06:22→21:00)
[2023-11-09] MEDS: methylPREDNISolone Sod Succ 40 MG VIAL IVP SCH (08:26)
[2023-11-09] MEDS: Cholecalciferol 1,000 UNITS (25 MCG) TAB PO SCH (08:26)
[2023-11-09] MEDS: Apixaban 5 MG TAB PO SCH ×2 (08:26→20:45)
[2023-11-09] MEDS: Tamsulosin HCl 0.4 MG CAP PO SCH (08:26)
[2023-11-09] MEDS: Finasteride 5 MG TAB PO SCH (08:26)
[2023-11-09] MEDS: Ferrous Sulfate 325 MG TAB PO SCH ×2 (08:26→20:46)
[2023-11-09] MEDS: Aspirin 81 mg Enteric Coated Tablet PO SCH (08:26)
[2023-11-09] MEDS: Folic Acid 1 MG TAB PO SCH (08:26)
[2023-11-09] MEDS: Pantoprazole 40 MG VIAL IVP SCH (08:26)
[2023-11-09] MEDS: Artificial Tear Sol 15 ML BOT EA EYE SCH ×4 (08:32→20:45)
[2023-11-09] MEDS: Ondansetron PF 4 MG/2 ML Vial IVP PRN ×2 (09:15→16:57)
[2023-11-09] MEDS ORDERED: Metoprolol Tartrate 5 MG/5 ML VIAL IVP SCH (09:45)
[2023-11-09 13:34] LABS: Bacteria/HPF None Seen HPF (None Seen); Squamous Epithelial 0-3 HPF (0-3)
[2023-11-09] MEDS: Sucralfate 1 GM TAB PO SCH ×2 (15:57→20:45)
[2023-11-09] MEDS: Amiodarone 450 MG in Dextrose 5% in Water 250 ML IVPB SCH (17:13)
[2023-11-09] MEDS: Gabapentin 300 MG CAP PO SCH (20:45)
[2023-11-09] MEDS: Atorvastatin Calcium 40 MG TAB PO SCH (20:46)
[2023-11-09] MEDS: Acetaminophen 325 MG TAB PO PRN (20:52)
[2023-11-09] MEDS ORDERED: sulfaSALAzine 500 MG TAB PO SCH (21:00)
[2023-11-09] MEDS ORDERED: Hydroxychloroquine Sulfate 200 MG TAB PO SCH (21:00)
[2023-11-09 23:57] LABS: Campy jejuni + coli by PCR Negative (Negative); STEC Shiga Toxin 1+2 Negative (Negative); Salmonella spp. by PCR Negative (Negative); Shigella spp + EIEC by PCR Negative (Negative)
[2023-11-10] MEDS ORDERED: Lactated Ringer's 500 ML IV SCH (01:15)
[2023-11-10] MEDS: Ondansetron PF 4 MG/2 ML Vial IVP PRN (01:41)
[2023-11-10] MEDS: Cefepime 1 GM in Sodium Chloride 0.9% 100 ML IVPB SCH (02:04)
[2023-11-10] MEDS ORDERED: NOREPINEPHRINE 8 MG/250 ML-D5W 250 ML ONE (03:07)
[2023-11-10] MEDS ORDERED: EPINEPHrine 1 MG/10 ML Abboject SYRINGE ONE (03:15)
[2023-11-10] MEDS ORDERED: Sodium Bicarb 50 MEQ/50 ML Abboject 8.4% SYRINGE ONE (03:15)
[2023-11-10] MEDS ORDERED: Rocuronium Bromide 10 MG/ML (10ML VIAL) ONE ×3 (03:15→08:59)
[2023-11-10] MEDS ORDERED: Sodium Bicarb 50 MEQ/50 ML VIAL IVP SCH ×2 (03:45→04:45)
[2023-11-10 03:47] LABS: Hematocrit 35.3 % (42.0-52.0); Hemoglobin 11.6 g/dL (14.0-18.0); Manual Diff?? YES; Mean Corpuscular HGB CONC 32.9 g/dL (32.0-36.0); Mean Corpuscular Hemoglobin 29.4 pg (27.0-31.0); Mean Corpuscular Volume 89.4 fl (78.0-98.0); Mean Platelet Volume 9.6 fL (7.4-10.4); Platelet Count 296 10x3/uL (130-400); RBC Distribution Width 13.4 % (11.5-14.5); Red Blood Cell (RBC) Count 3.95 mill/uL (4.70-6.10); White Blood Cell (WBC) Count 12.1 10x3/uL (4.8-10.8)
[2023-11-10 03:48] LABS: Delete Auto Diff?? YES
[2023-11-10 03:49] LABS: Actual Bicarbonate (HCO3a) 18.9 mEq/L (22-28); Base Excess (BEa) -7.1 mEq/L (-2.0 to +3.0); CO2 Tension 39.6 mmHg (35.0-45.0); Calcium, Ionized (arterial) 0.94 mmol/L (1.12-1.30); Hematocrit-ABG 34 % (42.0-52.0); Hemoglobin (Hb) 11.6 g/dL (14.0-18.0); Potassium - ABG Lab 4.16 mmol/L (3.70-5.30); pH, Arterial 7.296 (7.35-7.45)
[2023-11-10 03:53] LABS: Puncture Site RFA
[2023-11-10 04:09] LABS: Digoxin 1.56 ng/mL (0.8-2.0)
[2023-11-10 04:14] LABS: Vancomycin, Trough 17.5 ug/mL
[2023-11-10 04:25] LABS: Troponin I 0.362 ng/mL (< 0.028)
[2023-11-10 04:26] LABS: ALT (SGPT) 26 U/L (8-55); AST (SGOT) 56 U/L (5-34); Albumin 2.1 g/dL (3.4-4.8); Alkaline Phosphatase 80 U/L (40-110); Anion Gap 23 mmol/L (10-20); BUN (Urea Nitrogen) 48 mg/dL (8.4-25.7); Calc. Creatinine Clearance 23 mL/min (70-130); Calcium 6.6 mg/dL (7.8-10.44); Carbon Dioxide 14 mmol/L (23-31); Chloride 97 mmol/L (98-107); Estimated GFR 23; Globulin 2.3 g/dL (2.4-3.5); Glucose 63 mg/dL (83-110); Protein, Total 4.4 g/dL (5.8-8.1); Sodium 129 mmol/L (136-145)
[2023-11-10] MEDS ORDERED: Dextrose 50% Abboject 50 ML SYRINGE SLOW IVP PRN (04:30)
[2023-11-10] MEDS ORDERED: NOREPINEPHRINE 8 MG/250 ML-D5W 250 ML IVPB SCH (04:30)
[2023-11-10] MEDS ORDERED: CALCIUM GLUC 1 GM/NS 50 ML 1 GM in Premix 1 BAG IVPB SCH (04:30)
[2023-11-10] MEDS ORDERED: Sodium Bicarbonate 150 MEQ in Dextrose 5% in Water 1,000 ML IV SCH (04:45)
[2023-11-10 05:15] LABS: Band 44 % (5-11); Burr Cells MODERATE= 6-15 cells HPF (0-1); CellaVision Operator ID lab.sh2; Lymphocytes 4 % (21-51); Monocytes 11 % (0-10); Neutrophil 41 % (42-75); Nucleated RBC (Manual Ct) 1 % (0); Platelet Adequacy Comment Platelets Normal; Poikilocytosis SLIGHT = 6-15 cells HPF (0-5); Polychromasia SLIGHT = 2-3 cells HPF (0-2); Smudge Cells 10.5 %; Total Cell Count 105; Vacuoles SLIGHT
[2023-11-10] MEDS: Albumin 25% 25 GM/100 ML BOT IVPB SCH ×3 (05:29→17:37)
[2023-11-10] MEDS ORDERED: Lactated Ringer's 1,000 ML IV SCH (05:30)
[2023-11-10] MEDS: Vasopressin 20 UNITS in Sodium Chloride 0.9% 50 ML IV SCH ×2 (05:32→11:43)
[2023-11-10] MEDS: Vancomycin HCl 750 MG in Sodium Chloride 0.9% 250 ML 250 ML IVPB SCH (06:18)
[2023-11-10] MEDS: metroNIDAZOLE 500 MG in Premix 1 BAG IVPB SCH ×3 (06:18→22:20)
[2023-11-10] MEDS: Sodium Bicarbonate 150 MEQ in Dextrose 5% in Water 1,000 ML IV SCH ×3 (06:19→22:20)
[2023-11-10] MEDS ORDERED: Vancomycin Dose by Levels Sliding Scale (Wt 71-99) FS SCH (06:45)
[2023-11-10 07:03] LABS: Base Excess -9.4 mEq/L (-2.0 to +3.0); Calcium, Ionized (venous) 0.95 mmol/L (1.16-1.32); Chloride (VBG) 92 mmol/L (98-106); Hematocrit-VBG 34 % (42.0-52.0); Hemoglobin (Hb) 11.4 g/dL (12.6-17.4); Potassium (VBG) 3.68 mmol/L (3.70-5.30); Sodium 127 mmol/L (133-146); pH (venous) 7.348 (7.32-7.43)
[2023-11-10 07:04] LABS: Actual Bicarbonate (HCO3v) 14.8 mEq/L (22-28)
[2023-11-10] MEDS: Ipratropium Bromide 2.5 ml Neb NEB SCH ×3 (07:27→18:18)
[2023-11-10 07:41] LABS: ALT (SGPT) 22 U/L (8-55); AST (SGOT) 53 U/L (5-34); Albumin 2.4 g/dL (3.4-4.8); Alkaline Phosphatase 66 U/L (40-110); Anion Gap 24 mmol/L (10-20); BUN (Urea Nitrogen) 47 mg/dL (8.4-25.7); Bilirubin, Total 1.1 mg/dL (0.2-1.2); Calc. Creatinine Clearance 27 mL/min (70-130); Calcium 7.2 mg/dL (7.8-10.44); Carbon Dioxide 18 mmol/L (23-31); Chloride 93 mmol/L (98-107); Estimated GFR 26; Globulin 2.4 g/dL (2.4-3.5); Glucose 140 mg/dL (83-110); Potassium 3.7 mmol/L (3.5-5.1); Protein, Total 4.8 g/dL (5.8-8.1); Sodium 131 mmol/L (136-145)
[2023-11-10] MEDS ORDERED: Midazolam HCl 2 mg/2 ml Vial ONE (07:50)
[2023-11-10] MEDS ORDERED: Norepinephrine 4 MG/4 ML VIAL ONE (07:50)
[2023-11-10] MEDS ORDERED: Vasopressin 20 UNITS/ML VIAL ONE (07:50)
[2023-11-10] MEDS ORDERED: Albumin 25% 100 ML ONE (07:51)
[2023-11-10] MEDS ORDERED: Rocuronium Bromide 50 MG/5 ML VIAL ONE (07:51)
[2023-11-10] MEDS ORDERED: PHENYLEPHRINE-NS 100 MCG/ML 10 ML SYRINGE ONE ×2 (07:53→08:25)
[2023-11-10 08:22] LABS: INR-International Normal Ratio 3.5; Prothrombin Time 36.6 sec (12.0-14.7)
[2023-11-10 08:23] LABS: PTT 51.6 sec (22.9-36.1)
[2023-11-10] MEDS ORDERED: Calcium Chloride 1 GM/10 ML Abboject SYRINGE ONE ×2 (08:25→08:55)
[2023-11-10] MEDS ORDERED: fentaNYL 50 mcg/mL 1 mL Vial ONE (09:19)
[2023-11-10] MEDS ORDERED: Thrombin 5000 UNITS/5 ML VIAL ONE (09:34)
[2023-11-10] MEDS: Artificial Tear Sol 15 ML BOT EA EYE SCH ×4 (12:12→22:23)
[2023-11-10] MEDS: Finasteride 5 MG TAB PO SCH (12:13)
[2023-11-10] MEDS: Aspirin 81 mg Enteric Coated Tablet PO SCH (12:13)
[2023-11-10] MEDS: Gabapentin 300 MG CAP PO SCH (12:13)
[2023-11-10] MEDS: Tamsulosin HCl 0.4 MG CAP PO SCH (12:13)
[2023-11-10] MEDS: Folic Acid 1 MG TAB PO SCH (12:13)
[2023-11-10] MEDS: Ferrous Sulfate 325 MG TAB PO SCH ×2 (12:13→22:20)
[2023-11-10] MEDS: Cyanocobalamin (Vitamin B-12) 1,000 MCG TAB PO SCH (12:13)
[2023-11-10] MEDS: Cholecalciferol 1,000 UNITS (25 MCG) TAB PO SCH (12:13)
[2023-11-10] MEDS: methylPREDNISolone Sod Succ 40 MG VIAL IVP SCH (12:16)
[2023-11-10] MEDS: Pantoprazole 40 MG VIAL IVP SCH (12:16)
[2023-11-10 18:25] LABS: Hematocrit 29.3 % (42.0-52.0); Hemoglobin 9.9 g/dL (14.0-18.0); Manual Diff?? YES; Mean Corpuscular HGB CONC 33.8 g/dL (32.0-36.0); Mean Corpuscular Hemoglobin 29.5 pg (27.0-31.0); Mean Corpuscular Volume 87.2 fl (78.0-98.0); Mean Platelet Volume 9.7 fL (7.4-10.4); Platelet Count 198 10x3/uL (130-400); RBC Distribution Width 13.2 % (11.5-14.5); Red Blood Cell (RBC) Count 3.36 mill/uL (4.70-6.10); White Blood Cell (WBC) Count 7.6 10x3/uL (4.8-10.8)
[2023-11-10 18:27] LABS: Delete Auto Diff?? YES
[2023-11-10 18:51] LABS: Anion Gap 20 mmol/L (10-20); BUN (Urea Nitrogen) 52 mg/dL (8.4-25.7); Calc. Creatinine Clearance 30 mL/min (70-130); Calcium 7.1 mg/dL (7.8-10.44); Carbon Dioxide 22 mmol/L (23-31); Chloride 91 mmol/L (98-107); Estimated GFR 29; Glucose 189 mg/dL (83-110); Sodium 129 mmol/L (136-145)
[2023-11-10 19:05] LABS: Band 46 % (5-11); Burr Cells SLIGHT = 2-5 cells HPF (0-1); CellaVision Operator ID LAB.MJL; Dohle Bodies SLIGHT; Hypochromia SLIGHT = 6-15 cells HPF (0-5); Large Platelets 2.6 % (0-5); Lymphocytes 4 % (21-51); Metamyelocyte 8 % (0-0); Monocytes 8 % (0-10); Myelocyte 1 % (0-0); Neutrophil 33 % (42-75); Platelet Adequacy Comment Platelets Normal; Polychromasia SLIGHT = 2-3 cells HPF (0-2); Reactive Lymphocytes 1 % (0-10); Reflex for Review?? YES; Total Cell Count 114; Toxic Granulation SLIGHT
[2023-11-10] MEDS: Amiodarone 450 MG in Dextrose 5% in Water 250 ML IVPB SCH (22:20)
[2023-11-10] MEDS: Atorvastatin Calcium 40 MG TAB PO SCH (22:21)
[2023-11-11] MEDS: Albumin 25% 25 GM/100 ML BOT IVPB SCH (00:01)
[2023-11-11] MEDS: Ipratropium Bromide 2.5 ml Neb NEB SCH ×5 (00:10→23:54)
[2023-11-11] MEDS ORDERED: Morphine 2 MG/ML VIAL SLOW IVP PRN (00:30)
[2023-11-11] MEDS ORDERED: Lorazepam 2 MG/ML VIAL SLOW IVP PRN (00:30)
[2023-11-11] MEDS ORDERED: DISCONTINUE PREVIOUS NARCOTIC PAIN MEDICATIONS AND BENZODIAZEPINES FS SCH (00:30)
[2023-11-11] MEDS ORDERED: Fentanyl CADD 100 ML IV SCH (00:30)
[2023-11-11] MEDS ORDERED: Ventilator Sedation Protocol FS SCH (00:30)
[2023-11-11] MEDS ORDERED: Propofol 1,000 MG/100 ML VIAL IV PRN (00:30)
[2023-11-11] MEDS ORDERED: Fentanyl BOLUS 250 ML IVPB PRN (00:30)
[2023-11-11] MEDS ORDERED: Propofol BOLUS 1,000 MG/100 ML VIAL IV PRN (00:30)
[2023-11-11] MEDS: Cefepime 1 GM in Sodium Chloride 0.9% 100 ML IVPB SCH (04:47)
[2023-11-11 05:20] LABS: Hematocrit 25.1 % (42.0-52.0); Hemoglobin 8.9 g/dL (14.0-18.0); Manual Diff?? YES; Mean Corpuscular HGB CONC 35.5 g/dL (32.0-36.0); Mean Corpuscular Hemoglobin 30.2 pg (27.0-31.0); Mean Corpuscular Volume 85.1 fl (78.0-98.0); Mean Platelet Volume 9.9 fL (7.4-10.4); Platelet Count 198 10x3/uL (130-400); RBC Distribution Width 12.9 % (11.5-14.5); Red Blood Cell (RBC) Count 2.95 mill/uL (4.70-6.10); White Blood Cell (WBC) Count 8.3 10x3/uL (4.8-10.8)
[2023-11-11 05:22] LABS: Delete Auto Diff?? YES
[2023-11-11 05:44] LABS: Anion Gap 18 mmol/L (10-20); BUN (Urea Nitrogen) 59 mg/dL (8.4-25.7); Calc. Creatinine Clearance 30 mL/min (70-130); Calcium 7.5 mg/dL (7.8-10.44); Carbon Dioxide 28 mmol/L (23-31); Chloride 90 mmol/L (98-107); Estimated GFR 29; Glucose 163 mg/dL (83-110); Potassium 3.2 mmol/L (3.5-5.1); Sodium 133 mmol/L (136-145)
[2023-11-11 05:47] LABS: Band 29 % (5-11); CellaVision Operator ID LAB.CLH1; Hypochromia SLIGHT = 6-15 cells HPF (0-5); Large Platelets 0.9 % (0-5); Lymphocytes 12 % (21-51); Monocytes 13 % (0-10); Neutrophil 46 % (42-75); Platelet Adequacy Comment Platelets Normal; Polychromasia SLIGHT = 2-3 cells HPF (0-2); Total Cell Count 116
[2023-11-11] MEDS: Sodium Bicarbonate 150 MEQ in Dextrose 5% in Water 1,000 ML IV SCH (06:09)
[2023-11-11] MEDS: Vasopressin 20 UNITS in Sodium Chloride 0.9% 50 ML IV SCH (06:09)
[2023-11-11] MEDS: metroNIDAZOLE 500 MG in Premix 1 BAG IVPB SCH ×3 (06:14→21:11)
[2023-11-11 06:56] LABS: Vancomycin, Random 18.2 ug/mL (See Comment)
[2023-11-11 06:56] LABS: Actual Bicarbonate (HCO3a) 28.2 mEq/L (22-28); Base Excess (BEa) 6.7 mEq/L (-2.0 to +3.0); CO2 Tension 28.9 mmHg (35.0-45.0); Hematocrit-ABG 27 % (42.0-52.0); Hemoglobin (Hb) 9.1 g/dL (14.0-18.0)
[2023-11-11 06:57] LABS: ALV-art Gradient 141.075 mmHg (0-20); Puncture Site Arterial Line; pH, Arterial 7.607 (7.35-7.45)
[2023-11-11] MEDS ORDERED: Vancomycin HCl 500 MG in Sodium Chloride 0.9% 100 ML IV SCH (08:00)
[2023-11-11] MEDS ORDERED: FLU VACC QS2023(65UP)/MF59C/PF 60 MCG/0.5 ML SYRINGE IM ONE (09:00)
[2023-11-11] MEDS ORDERED: Digoxin 0.5 MG/2 ML AMP SLOW IVP SCH (09:00)
[2023-11-11] MEDS: Lactated Ringer's 1,000 ML IV SCH ×2 (09:05→17:50)
[2023-11-11] MEDS ORDERED: Electrolyte Replacement Protocol FS PRN (09:15)
[2023-11-11] MEDS: Potassium Chloride 20 MEQ in Premix 1 BAG IVPB SCH ×2 (09:30→10:41)
[2023-11-11] MEDS: Ferrous Sulfate 325 MG TAB PO SCH ×3 (09:31→20:08)
[2023-11-11] MEDS: Finasteride 5 MG TAB PO SCH ×2 (09:31→09:53)
[2023-11-11] MEDS: Pantoprazole 40 MG VIAL IVP SCH ×2 (09:31→09:53)
[2023-11-11] MEDS: Tamsulosin HCl 0.4 MG CAP PO SCH ×2 (09:31→09:53)
[2023-11-11] MEDS: Aspirin Chewable 81 MG TAB PO SCH ×2 (09:31→09:52)
[2023-11-11] MEDS: Cyanocobalamin (Vitamin B-12) 1,000 MCG TAB PO SCH ×2 (09:32→09:53)
[2023-11-11] MEDS: Folic Acid 1 MG TAB PO SCH ×2 (09:32→09:53)
[2023-11-11] MEDS: Artificial Tear Sol 15 ML BOT EA EYE SCH ×4 (09:32→21:12)
[2023-11-11] MEDS: Cholecalciferol 1,000 UNITS (25 MCG) TAB PO SCH ×2 (09:32→09:53)
[2023-11-11] MEDS: methylPREDNISolone Sod Succ 40 MG VIAL IVP SCH (09:51)
[2023-11-11] MEDS: fentaNYL 50 mcg/mL 1 mL Vial SLOW IVP PRN ×6 (11:59→23:55)
[2023-11-11] MEDS: Hydrocortisone Sod Succ/PF 100 mg/2 ml Vial IVP SCH ×3 (12:10→23:24)
[2023-11-11] MEDS: Amiodarone 450 MG in Dextrose 5% in Water 250 ML IVPB SCH (13:23)
[2023-11-11 15:19] LABS: Potassium 3.7 mmol/L (3.5-5.1)
[2023-11-11] MEDS: Atorvastatin Calcium 40 MG TAB PO SCH (20:08)
[2023-11-12] MEDS: fentaNYL 50 mcg/mL 1 mL Vial SLOW IVP PRN ×7 (02:35→18:23)
[2023-11-12] MEDS: Cefepime 1 GM in Sodium Chloride 0.9% 100 ML IVPB SCH ×2 (02:36→16:24)
[2023-11-12] MEDS: Lactated Ringer's 1,000 ML IV SCH ×2 (03:40→13:53)
[2023-11-12] MEDS: Amiodarone 450 MG in Dextrose 5% in Water 250 ML IVPB SCH (03:40)
[2023-11-12] MEDS: Hydrocortisone Sod Succ/PF 100 mg/2 ml Vial IVP SCH ×3 (05:13→22:01)
[2023-11-12] MEDS: metroNIDAZOLE 500 MG in Premix 1 BAG IVPB SCH ×3 (05:13→22:02)
[2023-11-12 07:28] LABS: Hematocrit 29.8 % (42.0-52.0); Hemoglobin 10.1 g/dL (14.0-18.0); Manual Diff?? YES; Mean Corpuscular HGB CONC 33.9 g/dL (32.0-36.0); Mean Corpuscular Hemoglobin 29.3 pg (27.0-31.0); Mean Corpuscular Volume 86.4 fl (78.0-98.0); Mean Platelet Volume 9.6 fL (7.4-10.4); Platelet Count 223 10x3/uL (130-400); RBC Distribution Width 13.4 % (11.5-14.5); Red Blood Cell (RBC) Count 3.45 mill/uL (4.70-6.10); White Blood Cell (WBC) Count 16.9 10x3/uL (4.8-10.8)
[2023-11-12 07:29] LABS: Delete Auto Diff?? YES
[2023-11-12] MEDS: Ipratropium Bromide 2.5 ml Neb NEB SCH ×3 (07:43→23:18)
[2023-11-12 07:47] LABS: Vancomycin, Random 14.2 ug/mL (See Comment)
[2023-11-12 07:50] LABS: ALT (SGPT) 24 U/L (8-55); AST (SGOT) 55 U/L (5-34); Albumin 2.8 g/dL (3.4-4.8); Alkaline Phosphatase 65 U/L (40-110); Anion Gap 12 mmol/L (10-20); BUN (Urea Nitrogen) 56 mg/dL (8.4-25.7); Bilirubin, Total 1.3 mg/dL (0.2-1.2); Calc. Creatinine Clearance 40 mL/min (70-130); Calcium 7.6 mg/dL (7.8-10.44); Carbon Dioxide 32 mmol/L (23-31); Chloride 93 mmol/L (98-107); Estimated GFR 38; Globulin 1.9 g/dL (2.4-3.5); Glucose 101 mg/dL (83-110); Potassium 3.5 mmol/L (3.5-5.1); Protein, Total 4.7 g/dL (5.8-8.1); Sodium 133 mmol/L (136-145)
[2023-11-12 07:54] LABS: Band 5 % (5-11); CellaVision Operator ID LAB.GE; Lymphocytes 3 % (21-51); Monocytes 2 % (0-10); Neutrophil 90 % (42-75); Platelet Adequacy Comment Platelets Normal; Polychromasia SLIGHT = 2-3 cells HPF (0-2); Total Cell Count 101
[2023-11-12] MEDS ORDERED: Potassium Chloride 20 MEQ TAB PO SCH (09:00)
[2023-11-12] MEDS: Cholecalciferol 1,000 UNITS (25 MCG) TAB PO SCH (09:44)
[2023-11-12] MEDS: Aspirin Chewable 81 MG TAB PO SCH (09:44)
[2023-11-12] MEDS: Folic Acid 1 MG TAB PO SCH (09:44)
[2023-11-12] MEDS: Tamsulosin HCl 0.4 MG CAP PO SCH (09:44)
[2023-11-12] MEDS: Cyanocobalamin (Vitamin B-12) 1,000 MCG TAB PO SCH (09:44)
[2023-11-12] MEDS: Finasteride 5 MG TAB PO SCH (09:44)
[2023-11-12] MEDS: Ferrous Sulfate 325 MG TAB PO SCH ×2 (09:45→22:02)
[2023-11-12] MEDS: Pantoprazole 40 MG VIAL IVP SCH (09:45)
[2023-11-12] MEDS: Artificial Tear Sol 15 ML BOT EA EYE SCH ×4 (10:33→22:00)
[2023-11-12] MEDS: Ondansetron PF 4 MG/2 ML Vial IVP PRN (10:36)
[2023-11-12] MEDS ORDERED: Vancomycin HCl 750 MG in Sodium Chloride 0.9% 250 ML 250 ML IVPB SCH (14:00)
[2023-11-12] MEDS: Atorvastatin Calcium 40 MG TAB PO SCH (22:01)
[2023-11-12] MEDS: Acetaminophen 325 MG TAB PO PRN (22:10)
[2023-11-13] MEDS: Lactated Ringer's 1,000 ML IV SCH ×3 (00:07→19:45)
[2023-11-13] MEDS: Cefepime 1 GM in Sodium Chloride 0.9% 100 ML IVPB SCH ×2 (03:28→15:53)
[2023-11-13] MEDS: fentaNYL 50 mcg/mL 1 mL Vial SLOW IVP PRN ×5 (06:09→16:25)
[2023-11-13] MEDS: metroNIDAZOLE 500 MG in Premix 1 BAG IVPB SCH ×3 (06:13→22:56)
[2023-11-13 06:46] LABS: Hematocrit 30.6 % (42.0-52.0); Hemoglobin 10.2 g/dL (14.0-18.0); Manual Diff?? YES; Mean Corpuscular HGB CONC 33.3 g/dL (32.0-36.0); Mean Corpuscular Hemoglobin 29.4 pg (27.0-31.0); Mean Corpuscular Volume 88.2 fl (78.0-98.0); Platelet Count 231 10x3/uL (130-400); RBC Distribution Width 13.7 % (11.5-14.5); Red Blood Cell (RBC) Count 3.47 mill/uL (4.70-6.10)
[2023-11-13 06:53] LABS: Delete Auto Diff?? YES
[2023-11-13 07:10] LABS: ALT (SGPT) 21 U/L (8-55); AST (SGOT) 35 U/L (5-34); Albumin 2.5 g/dL (3.4-4.8); Alkaline Phosphatase 63 U/L (40-110); Anion Gap 9 mmol/L (10-20); BUN (Urea Nitrogen) 50 mg/dL (8.4-25.7); Calc. Creatinine Clearance 46 mL/min (70-130); Calcium 7.4 mg/dL (7.8-10.44); Carbon Dioxide 32 mmol/L (23-31); Chloride 96 mmol/L (98-107); Estimated GFR 49; Globulin 1.9 g/dL (2.4-3.5); Glucose 102 mg/dL (83-110); Potassium 3.6 mmol/L (3.5-5.1); Protein, Total 4.4 g/dL (5.8-8.1); Sodium 133 mmol/L (136-145)
[2023-11-13 07:22] LABS: Band 3 % (5-11); CellaVision Operator ID LAB.GE; Lymphocytes 10 % (21-51); Monocytes 7 % (0-10); Neutrophil 76 % (42-75); Platelet Adequacy Comment Platelets Normal; Polychromasia SLIGHT = 2-3 cells HPF (0-2); Reactive Lymphocytes 5 % (0-10); Total Cell Count 103
[2023-11-13] MEDS: Ipratropium Bromide 2.5 ml Neb NEB SCH ×4 (07:54→23:40)
[2023-11-13] MEDS: Artificial Tear Sol 15 ML BOT EA EYE SCH ×4 (09:09→22:55)
[2023-11-13] MEDS: Acetaminophen 325 MG TAB PO PRN ×2 (09:09→22:57)
[2023-11-13] MEDS: Tamsulosin HCl 0.4 MG CAP PO SCH (09:10)
[2023-11-13] MEDS: Finasteride 5 MG TAB PO SCH (09:10)
[2023-11-13] MEDS: Amiodarone 200 MG TAB PO SCH ×3 (09:10→22:54)
[2023-11-13] MEDS: Cholecalciferol 1,000 UNITS (25 MCG) TAB PO SCH (09:10)
[2023-11-13] MEDS: Cyanocobalamin (Vitamin B-12) 1,000 MCG TAB PO SCH (09:10)
[2023-11-13] MEDS: Aspirin Chewable 81 MG TAB PO SCH (09:10)
[2023-11-13] MEDS: Ferrous Sulfate 325 MG TAB PO SCH ×2 (09:10→22:56)
[2023-11-13] MEDS: Folic Acid 1 MG TAB PO SCH (09:10)
[2023-11-13] MEDS: Atorvastatin Calcium 40 MG TAB PO SCH (22:55)
[2023-11-14] MEDS: Amiodarone 450 MG in Dextrose 5% in Water 250 ML IVPB SCH (01:58)
[2023-11-14] MEDS: Cefepime 1 GM in Sodium Chloride 0.9% 100 ML IVPB SCH ×2 (04:52→14:03)
[2023-11-14 04:53] LABS: Hematocrit 32.9 % (42.0-52.0); Hemoglobin 11.1 g/dL (14.0-18.0); Manual Diff?? YES; Mean Corpuscular HGB CONC 33.7 g/dL (32.0-36.0); Mean Corpuscular Hemoglobin 28.9 pg (27.0-31.0); Mean Corpuscular Volume 85.7 fl (78.0-98.0); Mean Platelet Volume 10.1 fL (7.4-10.4); Platelet Count 240 10x3/uL (130-400); RBC Distribution Width 13.9 % (11.5-14.5); Red Blood Cell (RBC) Count 3.84 mill/uL (4.70-6.10)
[2023-11-14 05:34] LABS: ALT (SGPT) 17 U/L (8-55); AST (SGOT) 27 U/L (5-34); Albumin 2.3 g/dL (3.4-4.8); Alkaline Phosphatase 56 U/L (40-110); Anion Gap 10 mmol/L (10-20); BUN (Urea Nitrogen) 39 mg/dL (8.4-25.7); Bilirubin, Total 0.9 mg/dL (0.2-1.2); Calc. Creatinine Clearance 61 mL/min (70-130); Calcium 7.5 mg/dL (7.8-10.44); Carbon Dioxide 30 mmol/L (23-31); Chloride 97 mmol/L (98-107); Estimated GFR 69; Glucose 74 mg/dL (83-110); Potassium 3.4 mmol/L (3.5-5.1); Protein, Total 4.3 g/dL (5.8-8.1); Sodium 134 mmol/L (136-145)
[2023-11-14 05:35] LABS: Delete Auto Diff?? YES
[2023-11-14] MEDS: metroNIDAZOLE 500 MG in Premix 1 BAG IVPB SCH ×3 (05:43→21:00)
[2023-11-14] MEDS: Lactated Ringer's 1,000 ML IV SCH (05:47)
[2023-11-14 06:40] LABS: Band 4 % (5-11); CellaVision Operator ID LAB.JMM; Hypochromia SLIGHT = 6-15 cells HPF (0-5); Lymphocytes 3 % (21-51); Macrocytosis SLIGHT = 6-15 cells HPF (0-5); Monocytes 4 % (0-10); Neutrophil 87 % (42-75); Platelet Adequacy Comment Platelets Normal; Reactive Lymphocytes 2 % (0-10); Smudge Cells 16.3 %; Total Cell Count 98
[2023-11-14] MEDS: Ipratropium Bromide 2.5 ml Neb NEB SCH ×3 (06:41→19:16)
[2023-11-14] MEDS: fentaNYL 50 mcg/mL 1 mL Vial SLOW IVP PRN (07:24)
[2023-11-14] MEDS ORDERED: Potassium Chloride 20 MEQ TAB PO SCH (08:00)
[2023-11-14] MEDS: Ferrous Sulfate 325 MG TAB PO SCH ×2 (08:27→20:58)
[2023-11-14] MEDS: predniSONE 20 MG TAB PO SCH (08:27)
[2023-11-14] MEDS: Amiodarone 200 MG TAB PO SCH ×2 (08:27→20:58)
[2023-11-14] MEDS: Aspirin Chewable 81 MG TAB PO SCH (08:28)
[2023-11-14] MEDS: Folic Acid 1 MG TAB PO SCH (08:28)
[2023-11-14] MEDS: Cholecalciferol 1,000 UNITS (25 MCG) TAB PO SCH (08:28)
[2023-11-14] MEDS: Cyanocobalamin (Vitamin B-12) 1,000 MCG TAB PO SCH (08:28)
[2023-11-14] MEDS: Finasteride 5 MG TAB PO SCH (08:28)
[2023-11-14] MEDS: Tamsulosin HCl 0.4 MG CAP PO SCH (08:28)
[2023-11-14] MEDS: Digoxin 0.125 MG TAB PO SCH (08:28)
[2023-11-14] MEDS: Artificial Tear Sol 15 ML BOT EA EYE SCH ×3 (08:31→18:02)
[2023-11-14] MEDS ORDERED: traMADol HCl 50 MG TAB PO PRN ×3 (08:35→14:08)
[2023-11-14] MEDS ORDERED: Amiodarone 200 MG TAB PO SCH (09:30)
[2023-11-14] MEDS ORDERED: Furosemide 20 MG/2 ML VIAL SLOW IVP SCH (10:00)
[2023-11-14] MEDS: Acetaminophen 500 MG TAB PO SCH ×2 (11:10→18:40)
[2023-11-14] MEDS: Atorvastatin Calcium 40 MG TAB PO SCH (20:58)
[2023-11-14] MEDS: Ondansetron PF 4 MG/2 ML Vial IVP PRN (20:59)
[2023-11-15] MEDS: Ipratropium Bromide 2.5 ml Neb NEB SCH ×4 (00:02→20:06)
[2023-11-15] MEDS: Artificial Tear Sol 15 ML BOT EA EYE SCH ×5 (01:45→20:44)
[2023-11-15] MEDS: Acetaminophen 500 MG TAB PO SCH ×5 (02:14→23:03)
[2023-11-15] MEDS: Cefepime 1 GM in Sodium Chloride 0.9% 100 ML IVPB SCH (04:17)
[2023-11-15 05:56] LABS: Hematocrit 35.9 % (42.0-52.0); Hemoglobin 11.9 g/dL (14.0-18.0); Manual Diff?? YES; Mean Corpuscular HGB CONC 33.1 g/dL (32.0-36.0); Mean Corpuscular Volume 87.6 fl (78.0-98.0); Platelet Count 353 10x3/uL (130-400); White Blood Cell (WBC) Count 10.8 10x3/uL (4.8-10.8)
[2023-11-15 06:02] LABS: Delete Auto Diff?? YES
[2023-11-15 06:26] LABS: ALT (SGPT) 17 U/L (8-55); AST (SGOT) 23 U/L (5-34); Albumin 2.2 g/dL (3.4-4.8); Alkaline Phosphatase 61 U/L (40-110); Anion Gap 12 mmol/L (10-20); BUN (Urea Nitrogen) 34 mg/dL (8.4-25.7); Bilirubin, Total 1.1 mg/dL (0.2-1.2); Calc. Creatinine Clearance 74 mL/min (70-130); Calcium 7.8 mg/dL (7.8-10.44); Carbon Dioxide 30 mmol/L (23-31); Chloride 97 mmol/L (98-107); Estimated GFR 84; Globulin 2.4 g/dL (2.4-3.5); Glucose 74 mg/dL (83-110); Protein, Total 4.6 g/dL (5.8-8.1); Sodium 135 mmol/L (136-145)
[2023-11-15] MEDS: metroNIDAZOLE 500 MG in Premix 1 BAG IVPB SCH ×2 (06:26→13:16)
[2023-11-15 06:46] LABS: CellaVision Operator ID lab.abc; Lymphocytes 4 % (21-51); Monocytes 4 % (0-10); Neutrophil 92 % (42-75); Platelet Adequacy Comment Platelets Normal; Polychromasia SLIGHT = 2-3 cells HPF (0-2); Total Cell Count 100
[2023-11-15] MEDS: Aspirin Chewable 81 MG TAB PO SCH (09:44)
[2023-11-15] MEDS: Digoxin 0.125 MG TAB PO SCH (09:44)
[2023-11-15] MEDS: Ferrous Sulfate 325 MG TAB PO SCH ×2 (09:45→20:43)
[2023-11-15] MEDS: Cholecalciferol 1,000 UNITS (25 MCG) TAB PO SCH (09:45)
[2023-11-15] MEDS: Finasteride 5 MG TAB PO SCH (09:45)
[2023-11-15] MEDS: Folic Acid 1 MG TAB PO SCH (09:45)
[2023-11-15] MEDS: predniSONE 20 MG TAB PO SCH (09:45)
[2023-11-15] MEDS: Cyanocobalamin (Vitamin B-12) 1,000 MCG TAB PO SCH (09:45)
[2023-11-15] MEDS: Tamsulosin HCl 0.4 MG CAP PO SCH (09:45)
[2023-11-15] MEDS: Amiodarone 200 MG TAB PO SCH ×2 (09:53→20:44)
[2023-11-15] MEDS: Cefepime 2 GM in Sodium Chloride 0.9% 100 ML IVPB SCH (16:31)
[2023-11-15] MEDS: Atorvastatin Calcium 40 MG TAB PO SCH (20:43)
[2023-11-16] MEDS: Ipratropium Bromide 2.5 ml Neb NEB SCH ×4 (00:31→19:27)
[2023-11-16] MEDS: Acetaminophen 500 MG TAB PO SCH ×4 (05:24→23:12)
[2023-11-16] MEDS: Cefepime 2 GM in Sodium Chloride 0.9% 100 ML IVPB SCH ×2 (05:24→17:51)
[2023-11-16 05:46] LABS: Hematocrit 34.2 % (42.0-52.0); Hemoglobin 11.4 g/dL (14.0-18.0); Manual Diff?? YES; Mean Corpuscular HGB CONC 33.3 g/dL (32.0-36.0); Mean Corpuscular Hemoglobin 29.6 pg (27.0-31.0); Mean Corpuscular Volume 88.8 fl (78.0-98.0); Mean Platelet Volume 9.8 fL (7.4-10.4); Platelet Count 417 10x3/uL (130-400); RBC Distribution Width 14.2 % (11.5-14.5); Red Blood Cell (RBC) Count 3.85 mill/uL (4.70-6.10); White Blood Cell (WBC) Count 12.7 10x3/uL (4.8-10.8)
[2023-11-16 06:04] LABS: Delete Auto Diff?? YES
[2023-11-16 06:11] LABS: ALT (SGPT) 15 U/L (8-55); AST (SGOT) 23 U/L (5-34); Albumin 2.4 g/dL (3.4-4.8); Alkaline Phosphatase 66 U/L (40-110); Anion Gap 12 mmol/L (10-20); BUN (Urea Nitrogen) 39 mg/dL (8.4-25.7); Bilirubin, Total 0.8 mg/dL (0.2-1.2); Calc. Creatinine Clearance 65 mL/min (70-130); Calcium 7.9 mg/dL (7.8-10.44); Carbon Dioxide 25 mmol/L (23-31); Chloride 98 mmol/L (98-107); Estimated GFR 74; Globulin 2.4 g/dL (2.4-3.5); Glucose 61 mg/dL (83-110); Potassium 4.1 mmol/L (3.5-5.1); Protein, Total 4.8 g/dL (5.8-8.1); Sodium 131 mmol/L (136-145)
[2023-11-16 07:08] LABS: Anisocytosis SLIGHT = 6-15 cells HPF (0-5); Band 10 % (5-11); CellaVision Operator ID LAB.JMM; Eosinophils 2 % (0-10); Hypochromia SLIGHT = 6-15 cells HPF (0-5); Lymphocytes 3 % (21-51); Macrocytosis SLIGHT = 6-15 cells HPF (0-5); Monocytes 7 % (0-10); Neutrophil 78 % (42-75); Platelet Adequacy Comment Platelets Normal; Polychromasia SLIGHT = 2-3 cells HPF (0-2); Total Cell Count 100
[2023-11-16] MEDS: Ondansetron PF 4 MG/2 ML Vial IVP PRN (10:47)
[2023-11-16] MEDS: Tamsulosin HCl 0.4 MG CAP PO SCH (11:56)
[2023-11-16] MEDS: Ferrous Sulfate 325 MG TAB PO SCH ×2 (11:56→20:55)
[2023-11-16] MEDS: Aspirin Chewable 81 MG TAB PO SCH (11:56)
[2023-11-16] MEDS: Digoxin 0.125 MG TAB PO SCH (11:56)
[2023-11-16] MEDS: Folic Acid 1 MG TAB PO SCH (11:56)
[2023-11-16] MEDS: Cyanocobalamin (Vitamin B-12) 1,000 MCG TAB PO SCH (11:56)
[2023-11-16] MEDS: Amiodarone 200 MG TAB PO SCH ×2 (11:57→20:55)
[2023-11-16] MEDS: Finasteride 5 MG TAB PO SCH (11:57)
[2023-11-16] MEDS: predniSONE 20 MG TAB PO SCH (11:57)
[2023-11-16] MEDS: Cholecalciferol 1,000 UNITS (25 MCG) TAB PO SCH (11:57)
[2023-11-16] MEDS: Artificial Tear Sol 15 ML BOT EA EYE SCH ×4 (11:58→20:56)
[2023-11-16] MEDS: NS 0.9% w/ 20 MEQ KCL 1,000 ML IV SCH (17:51)
[2023-11-17] MEDS: Ipratropium Bromide 2.5 ml Neb NEB SCH ×4 (00:26→19:46)
[2023-11-17] MEDS: NS 0.9% w/ 20 MEQ KCL 1,000 ML IV SCH ×3 (02:55→20:38)
[2023-11-17] MEDS: Acetaminophen 500 MG TAB PO SCH ×3 (05:53→18:09)
[2023-11-17] MEDS: Cefepime 2 GM in Sodium Chloride 0.9% 100 ML IVPB SCH (05:56)
[2023-11-17] MEDS ORDERED: Amiodarone 200 MG TAB PO SCH (09:12)
[2023-11-17] MEDS: predniSONE 20 MG TAB PO SCH (09:32)
[2023-11-17] MEDS: Aspirin Chewable 81 MG TAB PO SCH (09:32)
[2023-11-17] MEDS: Tamsulosin HCl 0.4 MG CAP PO SCH (09:33)
[2023-11-17] MEDS: Finasteride 5 MG TAB PO SCH (09:33)
[2023-11-17] MEDS: Ferrous Sulfate 325 MG TAB PO SCH ×2 (12:12→20:34)
[2023-11-17] MEDS: Artificial Tear Sol 15 ML BOT EA EYE SCH ×4 (12:12→20:37)
[2023-11-17] MEDS: Digoxin 0.125 MG TAB PO SCH (12:15)
[2023-11-17] MEDS: Amiodarone 200 MG TAB PO SCH (12:15)
[2023-11-17 13:09] VITALS: BMI 24.0
[2023-11-17] MEDS: Cyanocobalamin (Vitamin B-12) 1,000 MCG TAB PO SCH (16:24)
[2023-11-17] MEDS: Cholecalciferol 1,000 UNITS (25 MCG) TAB PO SCH (16:24)
[2023-11-17] MEDS: Folic Acid 1 MG TAB PO SCH (16:25)
[2023-11-17] MEDS ORDERED: Cefepime 1 GM in Sodium Chloride 0.9% 100 ML IVPB SCH (17:00)
[2023-11-17] MEDS: Ondansetron PF 4 MG/2 ML Vial IVP PRN (20:34)
[2023-11-17] MEDS: Apixaban 5 MG TAB PO SCH (20:34)
[2023-11-18] MEDS: Acetaminophen 500 MG TAB PO SCH ×4 (00:37→17:28)
[2023-11-18] MEDS ORDERED: Melatonin 3 MG TAB PO PRN (00:42)
[2023-11-18] MEDS: Ipratropium Bromide 2.5 ml Neb NEB SCH ×3 (01:27→14:15)
[2023-11-18] MEDS: NS 0.9% w/ 20 MEQ KCL 1,000 ML IV SCH (06:13)
[2023-11-18] MEDS ORDERED: Amiodarone 200 MG TAB PO SCH (09:00)
[2023-11-18] MEDS ORDERED: NS 0.9% w/ 20 MEQ KCL 1,000 ML IV SCH (09:32)
[2023-11-18] MEDS: predniSONE 20 MG TAB PO SCH (09:49)
[2023-11-18] MEDS: Cholecalciferol 1,000 UNITS (25 MCG) TAB PO SCH (09:50)
[2023-11-18] MEDS: Tamsulosin HCl 0.4 MG CAP PO SCH (09:50)
[2023-11-18] MEDS: Apixaban 5 MG TAB PO SCH (09:50)
[2023-11-18] MEDS: Aspirin Chewable 81 MG TAB PO SCH (09:50)
[2023-11-18 09:51] LABS: Hematocrit 35.4 % (42.0-52.0); Hemoglobin 11.4 g/dL (14.0-18.0); Manual Diff?? YES; Mean Corpuscular HGB CONC 32.2 g/dL (32.0-36.0); Mean Corpuscular Hemoglobin 28.8 pg (27.0-31.0); Mean Corpuscular Volume 89.4 fl (78.0-98.0); Mean Platelet Volume 9.7 fL (7.4-10.4); Platelet Count 370 10x3/uL (130-400); RBC Distribution Width 14.3 % (11.5-14.5); Red Blood Cell (RBC) Count 3.96 mill/uL (4.70-6.10); White Blood Cell (WBC) Count 8.9 10x3/uL (4.8-10.8)
[2023-11-18] MEDS: Finasteride 5 MG TAB PO SCH (09:51)
[2023-11-18] MEDS: Folic Acid 1 MG TAB PO SCH (09:51)
[2023-11-18] MEDS: Cyanocobalamin (Vitamin B-12) 1,000 MCG TAB PO SCH (09:51)
[2023-11-18 09:57] LABS: Delete Auto Diff?? YES
[2023-11-18 10:15] LABS: Anion Gap 13 mmol/L (10-20); BUN (Urea Nitrogen) 29 mg/dL (8.4-25.7); Calc. Creatinine Clearance 89 mL/min (70-130); Calcium 7.2 mg/dL (7.8-10.44); Carbon Dioxide 21 mmol/L (23-31); Chloride 102 mmol/L (98-107); Estimated GFR 91; Glucose 101 mg/dL (83-110); Sodium 131 mmol/L (136-145)
[2023-11-18] MEDS: Artificial Tear Sol 15 ML BOT EA EYE SCH ×3 (10:26→17:29)
[2023-11-18] MEDS: Ferrous Sulfate 325 MG TAB PO SCH (10:26)
[2023-11-18 10:30] LABS: Anisocytosis SLIGHT = 6-15 cells HPF (0-5); Band 4 % (5-11); CellaVision Operator ID lab.dlt; Lymphocytes 3 % (21-51); Monocytes 10 % (0-10); Neutrophil 82 % (42-75); Platelet Adequacy Comment Platelets Normal; Poikilocytosis SLIGHT = 6-15 cells HPF (0-5); Polychromasia SLIGHT = 2-3 cells HPF (0-2); Total Cell Count 101
[2023-11-18 20:12] VITALS: BP 105/59; TEMP 97.8
[2023-11-19] MEDS ORDERED: Ferrous Sulfate 325 MG TAB PO SCH (08:00)
== END 2023-11-18 19:52 | DRG 264 ==
LOC: ERS 11:41 → CCU 14:37 → 2NO 11-13 16:49
PROVIDERS: ADMIT Internal Medicine; ATTEND Internal Medicine
PROC: 3E033XZ Introduction of Vasopressor into Peripheral Vein, Percutaneous Approach (ICD-10-PCS; 2023-11-08)
PROC: 3E03329 Introduction of Other Anti-infective into Peripheral Vein, Percutaneous Approach (ICD-10-PCS; 2023-11-08)
PROC: 0DTF0ZZ Resection of Right Large Intestine, Open Approach (ICD-10-PCS; principal; 2023-11-10)
PROC: 0D1B0Z4 Bypass Ileum to Cutaneous, Open Approach (ICD-10-PCS; 2023-11-10)
PROC: 30233N1 Transfusion of Nonautologous Red Blood Cells into Peripheral Vein, Percutaneous Approach (ICD-10-PCS; 2023-11-10)
PROC: 4A133R1 Monitoring of Arterial Saturation, Peripheral, Percutaneous Approach (ICD-10-PCS; 2023-11-10)
PROC: 30233J1 Transfusion of Nonautologous Serum Albumin into Peripheral Vein, Percutaneous Approach (ICD-10-PCS; 2023-11-10)
DX: I48.19 Other persistent atrial fibrillation (principal); A41.9 Sepsis, unspecified organism; G93.41 Metabolic encephalopathy; R65.21 Severe sepsis with septic shock; J96.01 Acute respiratory failure with hypoxia; I21.A1 Myocardial infarction type 2; K55.019 Acute (reversible) ischemia of small intestine, extent unspecified; I50.32 Chronic diastolic (congestive) heart failure; E87.1 Hypo-osmolality and hyponatremia; E87.20 Acidosis, unspecified; N17.9 Acute kidney failure, unspecified; I13.0 Hypertensive heart and chronic kidney disease with heart failure and stage 1 through stage 4 chronic kidney disease, or unspecified chronic kidney disease; K56.7 Ileus, unspecified; I25.10 Atherosclerotic heart disease of native coronary artery without angina pectoris; M19.90 Unspecified osteoarthritis, unspecified site; K21.9 Gastro-esophageal reflux disease without esophagitis; Z98.890 Other specified postprocedural states; Z87.891 Personal history of nicotine dependence; Z79.01 Long term (current) use of anticoagulants; Z79.899 Other long term (current) drug therapy; M06.9 Rheumatoid arthritis, unspecified; E78.5 Hyperlipidemia, unspecified; Z82.49 Family history of ischemic heart disease and other diseases of the circulatory system; K52.9 Noninfective gastroenteritis and colitis, unspecified; N40.1 Benign prostatic hyperplasia with lower urinary tract symptoms; D69.6 Thrombocytopenia, unspecified; N28.1 Cyst of kidney, acquired; E86.1 Hypovolemia; E87.6 Hypokalemia; M25.461 Effusion, right knee; N18.30 Chronic kidney disease, stage 3 unspecified; D63.1 Anemia in chronic kidney disease; I49.5 Sick sinus syndrome; Z11.52 Encounter for screening for COVID-19; R53.81 Other malaise
CPT/HCPCS: 36415; 36416; 36430; 36556; 36600; 51702; 70450; 70496; 70498; 71045; 74018; 74022; 74176; 80048; 80053; 80061; 80162; 80202; 81001; 81015; 82533; 82550; 82805; 83605; 83735; 83880; 84100; 84145; 84443; 84484; 85025; 85060; 85610; 85730; 86850; 86900; 86901; 87040; 87086; 87324; 87449; 87505; 88307; 93005; 93010; 93306; 94002; 94003; 94640; 96365; 96366; 96368; 96375; 97139; 99292; A4314; C9113; J0171; J0282; J0613; J0692; J0780; J1160; J1200; J1650; J1720; J1940; J2250; J2405; J2920; J3010; J3370; J3475; J3480; J3490; J7050; J7070; J7120; J7512; P9016; P9047; Q9967

== ENCOUNTER 2023-11-29 13:53 | Emergency (ER) | payer OTHER ==
[~2023-11-29 13:53] MED LIST: Iopamidol-370 76% 500 ML MDV (1 ML CHARGE) ONE
[2023-11-29 15:42] LABS: #Eosinphils 0.1 thou/uL (0.0-0.7); #Monocytes 0.5 thou/uL (0.11-0.59); #Neutrophils 9.9 thou/uL (1.40-6.50); %Basophils 0.3 % (0.0-1.0); %Eosinophils 0.5 % (0.0-10.0); %Lymphocytes 6.5 % (21.0-51.0); Hematocrit 33.7 % (42.0-52.0); Hemoglobin 10.7 g/dL (14.0-18.0); Mean Corpuscular HGB CONC 31.8 g/dL (32.0-36.0); Mean Corpuscular Hemoglobin 28.1 pg (27.0-31.0); Mean Corpuscular Volume 88.5 fl (78.0-98.0); Mean Platelet Volume 8.8 fL (7.4-10.4); Platelet Count 351 10x3/uL (130-400); RBC Distribution Width 14.4 % (11.5-14.5); Red Blood Cell (RBC) Count 3.81 mill/uL (4.70-6.10); White Blood Cell (WBC) Count 11.4 10x3/uL (4.8-10.8)
[2023-11-29 16:03] LABS: ALT (SGPT) 48 U/L (8-55); AST (SGOT) 26 U/L (5-34); Albumin 2.5 g/dL (3.4-4.8); Alkaline Phosphatase 190 U/L (40-110); Anion Gap 13 mmol/L (10-20); BUN (Urea Nitrogen) 34 mg/dL (8.4-25.7); Bilirubin, Total 0.7 mg/dL (0.2-1.2); Calc. Creatinine Clearance 0 mL/min (70-130); Calcium 7.6 mg/dL (7.8-10.44); Carbon Dioxide 24 mmol/L (23-31); Chloride 97 mmol/L (98-107); Estimated GFR 88; Globulin 3.1 g/dL (2.4-3.5); Glucose 124 mg/dL (83-110); Potassium 5.1 mmol/L (3.5-5.1); Protein, Total 5.6 g/dL (5.8-8.1); Sodium 129 mmol/L (136-145)
== END 2023-11-29 18:20 | disposition home or self-care (01) ==
LOC: ERS 13:53
DX: G89.18 Other acute postprocedural pain (principal); E87.1 Hypo-osmolality and hyponatremia; I10 Essential (primary) hypertension; I25.10 Atherosclerotic heart disease of native coronary artery without angina pectoris; Z87.891 Personal history of nicotine dependence
CPT/HCPCS: 36415; 74177; 83605; 85025; Q9967

== ENCOUNTER 2023-12-03 10:07 | Observation (INO) | payer OTHER ==
[2023-12-03 11:14] LABS: #Basophils 0.1 thou/uL (0.0-0.2); #Eosinphils 0.2 thou/uL (0.0-0.7); #Monocytes 0.9 thou/uL (0.11-0.59); #Neutrophils 9.2 thou/uL (1.40-6.50); %Basophils 0.5 % (0.0-1.0); %Eosinophils 1.5 % (0.0-10.0); %Lymphocytes 12.1 % (21.0-51.0); %Monocytes 7.2 % (0.0-10.0); Hematocrit 36.4 % (42.0-52.0); Hemoglobin 11.7 g/dL (14.0-18.0); Mean Corpuscular HGB CONC 32.1 g/dL (32.0-36.0); Mean Corpuscular Hemoglobin 27.9 pg (27.0-31.0); Mean Corpuscular Volume 86.9 fl (78.0-98.0); Mean Platelet Volume 8.8 fL (7.4-10.4); Platelet Count 389 10x3/uL (130-400); RBC Distribution Width 14.3 % (11.5-14.5); Red Blood Cell (RBC) Count 4.19 mill/uL (4.70-6.10); White Blood Cell (WBC) Count 11.9 10x3/uL (4.8-10.8)
[2023-12-03 11:33] LABS: ALT (SGPT) 46 U/L (8-55); AST (SGOT) 26 U/L (5-34); Albumin 2.9 g/dL (3.4-4.8); Alkaline Phosphatase 215 U/L (40-110); Anion Gap 13 mmol/L (10-20); BUN (Urea Nitrogen) 23 mg/dL (8.4-25.7); Bilirubin, Total 0.8 mg/dL (0.2-1.2); Calc. Creatinine Clearance 0 mL/min (70-130); Calcium 8.4 mg/dL (7.8-10.44); Carbon Dioxide 24 mmol/L (23-31); Chloride 93 mmol/L (98-107); Estimated GFR 78; Globulin 3.3 g/dL (2.4-3.5); Glucose 94 mg/dL (83-110); Potassium 5.4 mmol/L (3.5-5.1); Protein, Total 6.2 g/dL (5.8-8.1); Sodium 125 mmol/L (136-145)
[2023-12-03 11:36] LABS: Troponin I Less than 0.010 ng/mL (< 0.028)
== END 2023-12-03 13:49 | disposition short-term general hospital (02) ==
LOC: ERS 10:07 → ERHOLD 13:49
PROVIDERS: ADMIT Internal Medicine; ATTEND Internal Medicine
DX: R07.9 Chest pain, unspecified (principal)
CPT/HCPCS: 36415; 71045; 71275; 80053; 83880; 85025; 85379; 93005; G0378; Q9967

== ENCOUNTER 2024-04-01 10:22 | Day surgery (SDC) | payer MEDICARE ==
[~2024-04-01 10:22] MED LIST changes: +Fluorouracil 100 MG, Enoxaparin 25 MG, EPINEPHrine 0.3 MG in Ophthalmic Irrigation Solu... IRR SCH; -Iopamidol-370 76% 500 ML MDV (1 ML CHARGE) ONE
[2024-04-01] MEDS ORDERED: PHENYLephrine 2.5% Ophth Soln 15 ml Bottle ONE (13:07)
[2024-04-01] MEDS ORDERED: Midazolam HCl 2 mg/2 ml Vial ONE (15:34)
[2024-04-01] MEDS ORDERED: fentaNYL 50 mcg/mL 1 mL Vial ONE (15:34)
[2024-04-01] MEDS ORDERED: PROPOFOL 20 ML ONE (15:34)
[2024-04-01] MEDS ORDERED: Lidocaine 1% PF 5 ML VIAL ONE (15:44)
[2024-04-01] MEDS ORDERED: Maxitrol 0.1% Opth Oint 3.5 GM TUBE ONE (15:53)
[2024-04-01] MEDS ORDERED: CEFAZOLIN 1 GM VIAL ONE (15:53)
[2024-04-01] MEDS ORDERED: Lidocaine 4% PF 5 ML AMP ONE (15:53)
[2024-04-01] MEDS ORDERED: Bupivacaine 0.75% 10 ML VIAL ONE (15:53)
[2024-04-01] MEDS ORDERED: Enoxaparin 30 MG (0.3 mL) SYRINGE ONE (15:53)
[2024-04-01] MEDS ORDERED: Triamcinolone 40 MG/ML VIAL ONE (15:53)
== END 2024-04-01 18:00 | disposition home or self-care (01) ==
LOC: SDC 10:22
PROVIDERS: ATTEND Ophthalmology Retina Specialist
PROC: 08T53ZZ Resection of Left Vitreous, Percutaneous Approach (ICD-10-PCS; principal; 2024-04-01)
PROC: 08QF3ZZ Repair Left Retina, Percutaneous Approach (ICD-10-PCS; 2024-04-01)
DX: H33.022 Retinal detachment with multiple breaks, left eye (principal)
CPT/HCPCS: 67025; 67108; J3010; J0171; J0690; J1650; J2250; J2704; J3301; J3490; J9190

== ENCOUNTER 2024-04-30 11:56 | Outpatient (CLI) | payer MEDICARE, OTHER ==
[2024-04-30 13:37] LABS: Hematocrit 41.1 % (38.8-50.0); Hemoglobin 13.3 g/dL (13.5-17.5); Mean Corpuscular HGB CONC 32.4 g/dL (32.0-36.0); Mean Corpuscular Hemoglobin 29.2 pg (27.0-33.0); Mean Corpuscular Volume 90.3 fL (81.2-95.1); Mean Platelet Volume 9.3 fL (7.4-10.4); Platelet Count 259 10x3/uL (150-450); RBC Distribution Width 16.8 % (11.5-14.5); Red Blood Cell (RBC) Count 4.55 10x6/uL (4.32-5.72); White Blood Cell (WBC) Count 8.2 10x3/uL (3.5-10.5)
[2024-04-30 14:04] LABS: Anion Gap 16 mmol/L (10-20); BUN (Urea Nitrogen) 13 mg/dL (8.4-25.7); Calc. Creatinine Clearance 0 mL/min (70-130); Calcium 9.3 mg/dL (7.8-10.44); Carbon Dioxide 20 mmol/L (23-31); Chloride 107 mmol/L (98-107); Estimated GFR 73; Glucose 81 mg/dL (83-110); Potassium 4.5 mmol/L (3.5-5.1); Sodium 138 mmol/L (136-145)
== END 2024-04-30 11:57 | disposition home or self-care (01) ==
LOC: LABBT 11:56
PROVIDERS: ATTEND Surgery
DX: Z01.818 Encounter for other preprocedural examination (principal); Z93.2 Ileostomy status
CPT/HCPCS: 80048; 85027; 93005; 93010

== ENCOUNTER 2024-05-12 12:57 | Inpatient (IN) | payer OTHER ==
[2024-05-12] MEDS ORDERED: Ondansetron PF 4 MG/2 ML Vial IVP PRN (14:15)
[2024-05-12] MEDS ORDERED: Acetaminophen 650 MG Suppository PR PRN (14:15)
[2024-05-12] MEDS ORDERED: Bisacodyl 10 MG SUPP PR PRN (14:22)
[2024-05-12] MEDS: Lorazepam 2 MG/ML VIAL SLOW IVP PRN (15:37)
[2024-05-12] MEDS: Morphine 4 MG/ML VIAL SLOW IVP PRN (15:37)
[2024-05-12] MEDS: Scopolamine 1 mg/72 hour Patch TOP PRN (15:38)
[2024-05-12] MEDS: Morphine 4 MG/ML VIAL SLOW IVP SCH (15:49)
[2024-05-13] MEDS: Lorazepam 2 MG/ML VIAL SLOW IVP PRN (00:15)
[2024-05-14 10:42] VITALS: BP 114/53; TEMP 99.2
== END 2024-05-14 15:26 | disposition expired | DRG 951 ==
LOC: IMCU/EMU 12:57 → T4-A 05-14 11:40
PROVIDERS: ADMIT Family Medicine; ATTEND Family Medicine
DX: Z51.5 Encounter for palliative care (principal); K55.9 Vascular disorder of intestine, unspecified; Z66 Do not resuscitate; Z93.2 Ileostomy status; Z79.01 Long term (current) use of anticoagulants; Z79.899 Other long term (current) drug therapy
CPT/HCPCS: J2060; J2270